=== PATIENT | female | born 1930 | race African-American/Black ===

== ENCOUNTER 2018-09-21 18:31 | Inpatient (IN) | payer OTHER ==
[~2018-09-21] VITALS: Ht 157.5 cm; Wt 78.5 kg
[2018-09-21 18:34] VITALS: BP 111/51
--- NOTE | 2018-09-21 18:35 | NUR ---
PT BIB [facility] TO ER BED 10
--- NOTE | 2018-09-21 18:50 | NUR ---
PT TO ED VIA EMS FOR NEAR SYNCOPAL EPISODE AT NURSING FACILITY TODAY. UPON ARRIVAL PT WAS ALERT TO NAME. NOT ALERT TO EVENT, BIRTHDAY. PT HAS HX OF DEMENTIA, PER SON, PT IS AT BASELINE. NO OBVIOUS DISTRESS NOTED. PT PLACED INTO BED, ON CONTINOUS CARDIAC MONITORING, PENDING MD HSU.
--- NOTE | 2018-09-21 19:12 | NUR ---
RECEIVED REPORT FROM VICKIE CAMARENA. TRANSFER OF CARE AT THIS TIME.
--- NOTE | 2018-09-21 19:15 | NUR ---
LAB AT BEDSIDE FOR BLOOD DRAWS.
[2018-09-21 19:33] LABS: BASOPHILS % (AUTO) 0.6 % (0.0-2.0); EOSINOPHILS # (AUTO) 0.3 K/uL (0-0.4); EOSINOPHILS % (AUTO) 4.7 % (0.0-4.0); HEMATOCRIT 38.4 % (36-48); HEMOGLOBIN 12.3 g/dL (12.0-16.0); LYMPHOCYTES # (AUTO) 1.5 K/uL (2.5-16.5); LYMPHOCYTES % (AUTO) 23.5 % (20.5-51.1); MEAN CORPUSCULAR HEMOGLOBIN 31 pg (27-31); MEAN CORPUSCULAR HGB CONC 32 g/dL (33-37); MONOCYTES # (AUTO) 0.5 K/uL (0.8-1.0); MONOCYTES % (AUTO) 7.5 % (1.7-9.3); NEUTROPHILS # (AUTO) 4.1 K/uL (1.8-7.7); NEUTROPHILS % (AUTO) 63.7 % (42.2-75.2); PLATELET COUNT (AUTO) 255 K/uL (140-450); RED BLOOD CELL COUNT(AUTO) 3.92 MIL/uL (4.20-5.40); RED CELL DISTRIBUTION WIDTH 14.7 % (11.6-13.7); WHITE BLOOD COUNT (AUTO) 6.4 K/uL (4.8-10.8)
[2018-09-21 19:39] LABS: CARBON DIOXIDE 26.4 mmol/L (21-32); CHLORIDE 107 mmol/L (98-107); CREATININE 1.7 mg/dL (0.6-1.3); GLUCOSE 151 mg/dL (74-106); POTASSIUM 4.4 mmol/L (3.5-5.1); SODIUM SERUM 144 mmol/L (136-145); UREA NITROGEN, BLOOD 41 mg/dL (7-18)
[2018-09-21] MEDS ORDERED: MULT-2246 PO (19:40)
[2018-09-21] MEDS ORDERED: DEXT1CAP3 PO ×2 (19:40→22:20)
[2018-09-21] MEDS ORDERED: MAGN400S60 PO ×2 (19:40→22:20)
[2018-09-21] MEDS ORDERED: ACET-2619 PO ×3 (19:40→22:20)
[2018-09-21] MEDS ORDERED: DEXT1DRO4 OP (19:40)
[2018-09-21] MEDS ORDERED: GLIP5TAB4 PO ×2 (19:40→22:20)
[2018-09-21] MEDS ORDERED: METF500T PO (19:40)
[2018-09-21] MEDS ORDERED: [UNRECOGNIZED DRUG - CODE] PO (19:40)
[2018-09-21] MEDS ORDERED: XALOS OP ×2 (19:40→22:20)
[2018-09-21] MEDS ORDERED: LANTUS SUBQ (19:40)
[2018-09-21] MEDS ORDERED: FERR325E14 PO ×2 (19:40→22:20)
[2018-09-21] MEDS ORDERED: VITD1000 PO ×2 (19:40→22:20)
[2018-09-21] MEDS ORDERED: NA P135N RC (19:40)
[2018-09-21] MEDS ORDERED: BISA-213 RC ×2 (19:40→22:20)
[2018-09-21] MEDS ORDERED: LOSA50TA66 PO ×2 (19:40→22:20)
[2018-09-21] MEDS ORDERED: CLOP75TA26 PO ×2 (19:40→22:20)
--- NOTE | 2018-09-21 19:40 | NUR ---
XRAY AT BEDSIDE.
[2018-09-21] MEDS ORDERED: OLAN5TAB1 PO (19:41)
[2018-09-21 19:45] LABS: ALBUMIN 2.8 g/dL (3.4-5.0); ASPARTATE AMINOTRANSFERASE 14 U/L (15-37); TOTAL BILIRUBIN 0.2 mg/dL (0.0-1.0)
--- NOTE | 2018-09-21 19:51 | NUR ---
DR. FUNEZ EVALUATING AT BEDSIDE.
[2018-09-21 19:53] LABS: CREATINE KINASE MB 1.2 ng/mL (0-3.6)
--- NOTE | 2018-09-21 20:30 | NUR ---
Note shea in EDM - 09/21/18 at 2117 by BIJU # 14 FR Joshi catheter with 10 ml utilizing sterile technique. Immediate return of 50 ml dark yellow urine noted. Bedside drainage bag placed below level of bladder. Urine sample collected and sent to lab. Pt tolerated procedure well. Pt visualized scratching genitals repeatedly. Urethra appears red, swollen, irritated. Dark yellow discharge noted.
--- NOTE | 2018-09-21 20:40 | NUR ---
PERINEAL CARE AND HYGIENE PROVIDED AT THIS TIME.
--- NOTE | 2018-09-21 21:30 | NUR ---
Patient appears to be resting comfortably in bed. Vital Signs within normal limits. Respirations even and unlabored. Skin pink, warm, dry. Son sitting at bedside.
[2018-09-21 21:40] LABS: APPEARANCE,URINE HAZY (CLEAR); BILIRUBIN,URINE NEGATIVE (NEGATIVE); BLOOD, URINE TRACE-I (NEGATIVE); COLOR,URINE YELLOW (YELLOW); LEUKOCYTE ESTERASE ,URINE 2+ (NEGATIVE); NITRITE, URINE POSITIVE (NEGATIVE); PH,URINE 5.5 (5.0-9.0); UGLUCOSE NEGATIVE (NEGATIVE)
[2018-09-21 21:52] LABS: RBC,URINE 0-5 /HPF (0-5)
[2018-09-21 21:53] LABS: WBC,URINE >25 (MANY) /HPF (0-5)
[2018-09-21] MEDS ORDERED: [UNRECOGNIZED DRUG - CODE] PO (22:20)
[2018-09-21] MEDS ORDERED: METF500T2 PO (22:20)
[2018-09-21] MEDS ORDERED: OLAN2.5T1 PO (22:20)
[2018-09-21] MEDS ORDERED: ALUM355S59 PO (22:20)
[2018-09-21] MEDS ORDERED: POLY15SO48 OP (22:20)
[2018-09-21] MEDS ORDERED: MULT-1868 PO (22:20)
[2018-09-21] MEDS ORDERED: ACET-9800 PO (22:20)
[2018-09-21] MEDS ORDERED: INSU100S22 SUBQ (22:20)
[2018-09-21] MEDS ORDERED: NA P133E RC (22:20)
[2018-09-21] MEDS ORDERED: cefTRIAXone 1,000 MG in LIDOCAINE MPF 1% - 5 mL VIAL 2.1 ML IM ONE (22:35)
[2018-09-21] MEDS ORDERED: NACL 0.9% 1,000 ML IV SCH (22:39)
[2018-09-21] MEDS ORDERED: HYDROcodone/APAP 7.5/325 MG 1 TAB PO PRN (22:40)
[2018-09-21] MEDS ORDERED: ONDANSETRON 4 MG/2 ML VIAL IVP PRN (22:40)
[2018-09-21] MEDS ORDERED: ACETAMINOPHEN 325 MG TAB PO PRN (22:40)
--- NOTE | 2018-09-21 22:40 | NUR ---
Patient appears to be resting comfortably in bed. Vital Signs within normal limits. Respirations even and unlabored. Skin pink, warm, dry. Son sitting at bedside.
--- NOTE | 2018-09-21 22:49 | NUR ---
PT SON CONTACT IS MYRA ESCOBAR [phone]
[2018-09-21 23:10] LABS: PROTHROMBIN TIME 9.6 secs (10.8-13.4)
[2018-09-21 23:25] VITALS: BP 101/47
--- NOTE | 2018-09-21 23:25 | NUR ---
Patient will be admitted to care of Dr. Ron. Admited to TELE. Will go to room 128A. Belongings list completed. Report to VICKIE Duff.
--- NOTE | 2018-09-21 23:25 | NUR ---
PT BROUGHT UP BY ROBERT ESCORTED BY DAVID ABDI AND ARCHIE RN. PT WHEELED TO ROOM 128 AND WAS TRANSFERRED TO BED B BY STAFF. PT IS AOX 1-2, WITH INTACT SKIN. SHE HAS HX OF DEMENTIA, SHE IS PLEASANT BUT CONFUSED. PT REORIENTED AND MRSA SWAB WELL V/S DONE AT BEDSIDE V/S FOLLOWS T 97.5 P 96 R 20 B/P 101/47. 02 ON ROOM AIR. REPORT GIVEN AT BEDSIDE FROM ARCHIE. PT ORIENTED TO PLACE, ROOM AND BED. ALL FALLS PRECAUTIONS IN PLACE AND CALL RUIZ IN REACH.
[2018-09-21 23:45] LABS: FREE T4 (FREE THYROXINE) 1.1 ng/dL (0.76-1.46); THYROID STIMULATING HORMONE 10.79 uIU/mL (0.34-3.74)
[2018-09-22] MEDS ORDERED: SODIUM PHOSPHATE 118 ML ENEM RC PRN (00:45)
[2018-09-22] MEDS ORDERED: ACETAMINOPHEN 325 MG TAB PO PRN (00:45)
[2018-09-22] MEDS ORDERED: MECLIZINE 25 MG TAB PO PRN (00:45)
[2018-09-22] MEDS ORDERED: BISACODYL 10 MG SUPP RC PRN (00:45)
[2018-09-22] MEDS ORDERED: MAGNESIUM HYDROXIDE 2400 MG/30 ML UDC PO PRN (00:45)
[2018-09-22 04:00] VITALS: BP 120/42
--- NOTE | 2018-09-22 04:00 | NUR ---
PT IN BED ALL FALLS PRECAUTIONS IN PLACE. PT PULLED OUT IV SITE, NEW ONE PLACED ON LEFT WRIST 24G INTACT AND RUNNING N/S AT 50MLS/HR ORDERED. V/S FOLLOWS T 97.4 P 68 R 18 B/P 120/42 02 97% ON ROOM AIR. PT HAS NO S/S OF PAIN OR DISTRESS NOTED.
--- NOTE | 2018-09-22 06:00 | NUR ---
PT IN BED NEW IV SITE ON LEFT WRIST INTACT AND RUNNING N/S AT 50MLS/HR. PT FINGERSTICK IS 74 GIVEN OJ NO COVERAGE NEEDED.
[2018-09-22] MEDS: BLOOD GLUCOSE MONITORING 1 DEV DEV FS SCH ×4 (07:30→20:48)
--- NOTE | 2018-09-22 07:30 | NUR ---
REPORT GIVEN TO JASWINDER RN DAYSHIFT NURSE AT BEDSIDE FOR CONTINUITY OF CARE, PT IN STABLE CONDITION.
--- NOTE | 2018-09-22 07:31 | NUR ---
PT RESTING IN BED AOX1 ALERT TO NAME BUT OTHERWISE NONE VERBAL AT THIS TIME. PT HAS A LEFT WRIST IV THAT IS ASYMPTOMATIC AND PATENT INFUSING NS AT 50ML/HR. ALL SAFETY MEASURES IN PLACE WITH CALL LIGHT WITHIN REACH. FLACC 0 AND NOT RESPONDING TO ANY QUESTIONS OF DISCOMFORT OR PAIN WITH NO FACIAL GRIMACING APPARENT AND NO OBVIOUS DISTRESS BREATHING UNLABORED.
[2018-09-22 08:00] VITALS: BP 109/52
[2018-09-22] MEDS ORDERED: NON-FORMULARY ITEM (Metformin HCl* (Glucophage Xr*) 500 MG) PO SCH (08:00)
[2018-09-22] MEDS: FERROUS SULFATE 325 MG TABEC PO SCH ×2 (08:37→20:39)
[2018-09-22] MEDS: LOSARTAN 50 MG TAB PO SCH ×2 (08:37→20:39)
[2018-09-22] MEDS: DOCUSATE SODIUM 100 MG GELCAP PO SCH ×2 (08:37→20:39)
[2018-09-22] MEDS: ALUMINUM HYD/MAG/SIMETHICONE 30 ML UDC PO SCH (08:37)
--- NOTE | 2018-09-22 08:38 | NUR ---
ADMINISTERED MEDICATIONS PT RESTING IN BED AND ABLE TO SWALLOW PILLS AND MEDICINE WITHOUT DIFFICULTY. CURRENTLY PT IS ALSO ABOUT TO RECEIVE ULTRASOUND AT BEDSIDE. NO DISTRESS AT THIS TIME AND BREATHING UNLABORED.
[2018-09-22 08:41] LABS: CHOL/HDL RATIO 1.9 (1-4.5)
--- NOTE | 2018-09-22 08:50 | NUR ---
PATIENT HAS BEEN SCREENED AND CATEGORIZED MODERATE NUTRITION RISK. PATIENT WILL BE SEEN WITHIN 3-5 DAYS OF ADMISSION. 09/24/18-09/26/[address]
[2018-09-22] MEDS ORDERED: NON-FORMULARY ITEM (Dextromethorphan HBr/Quinidine (Nuedexta 20-10 mg Capsule) 1 CAP) PO SCH (09:00)
[2018-09-22] MEDS ORDERED: NON-FORMULARY ITEM (Dextran 70/Hypromellose (Artificial Tears) 1 EACH) OP SCH (09:00)
[2018-09-22] MEDS ORDERED: glipiZIDE 5 MG TAB PO SCH (09:00)
[2018-09-22] MEDS: CLOPIDOGREL 75 MG TAB PO SCH (09:37)
[2018-09-22] MEDS: INSULIN LANTUS 100 UNITS/ML 10 ML VIAL SUBQ SCH (09:41)
--- NOTE | 2018-09-22 09:47 | NUR ---
ADMINISTERED SCHEDULED MEDICATIONS AND ASSISTED PT UP IN BED TO FINISH BREAKFAST WELL. CONTACTED GEOGRAPHIC INFORMATION SYSTEMS DIRECTOR TO ALSO ASSIST WITH PT FINISHING BREAKFAST SHE HAS A TENDENCY TO KEEP FALLING ASLEEP AND PT IS REQUESTING SHE WANTS TO EAT BREAKFAST NOW COMMUNICATING WITH ME VERBALLY.
[2018-09-22] MEDS: DEXT 5% / NACL 0.9% 500 ML IV SCH ×2 (10:42→17:13)
--- NOTE | 2018-09-22 10:43 | NUR ---
SPOKE TO POGio BOCANEGRA WINSTON AT BEDSIDE REGARDING PT PROCEDURES DONE TODAY AND HOW SHE HAS BEEN DOING THIS MORNING. PT SON HAS NO OTHER REQUESTS, PT RESTING IN BED BREATHING UNLABORED.
[2018-09-22 10:48] LABS: BASOPHILS % (AUTO) 0.6 % (0.0-2.0); EOSINOPHILS # (AUTO) 0.4 K/uL (0-0.4); EOSINOPHILS % (AUTO) 5.7 % (0.0-4.0); HEMATOCRIT 36.4 % (36-48); HEMOGLOBIN 11.7 g/dL (12.0-16.0); LYMPHOCYTES # (AUTO) 1.8 K/uL (2.5-16.5); LYMPHOCYTES % (AUTO) 29.4 % (20.5-51.1); MEAN CORPUSCULAR HEMOGLOBIN 32 pg (27-31); MEAN CORPUSCULAR HGB CONC 32 g/dL (33-37); MEAN CORPUSCULAR VOLUME 98.6 fL (80-94); MONOCYTES # (AUTO) 0.4 K/uL (0.8-1.0); MONOCYTES % (AUTO) 7.1 % (1.7-9.3); NEUTROPHILS # (AUTO) 3.6 K/uL (1.8-7.7); NEUTROPHILS % (AUTO) 57.2 % (42.2-75.2); PLATELET COUNT (AUTO) 221 K/uL (140-450); RED BLOOD CELL COUNT(AUTO) 3.69 MIL/uL (4.20-5.40); RED CELL DISTRIBUTION WIDTH 14.9 % (11.6-13.7); WHITE BLOOD COUNT (AUTO) 6.3 K/uL (4.8-10.8)
[2018-09-22 11:02] LABS: ANION GAP 10.8 (8-16); CARBON DIOXIDE 26.8 mmol/L (21-32); CHLORIDE 110 mmol/L (98-107); CREATININE 1.6 mg/dL (0.6-1.3); GLUCOSE 121 mg/dL (74-106); POTASSIUM 4.6 mmol/L (3.5-5.1); SODIUM SERUM 143 mmol/L (136-145); UREA NITROGEN, BLOOD 38 mg/dL (7-18)
[2018-09-22 11:07] LABS: MAGNESIUM 2.1 mg/dL (1.8-2.4); PHOSPHORUS 3.1 mg/dL (2.5-4.9)
[2018-09-22] MEDS: INSULIN LISPRO SLIDING SCALE 100 UNITS/ML VIAL SUBQ PRN ×2 (11:39→17:24)
[2018-09-22 12:00] VITALS: BP 139/42
[2018-09-22] MEDS: POLYVINYL ALCOHOL 1.4% OP 15 ML SOL OP SCH ×2 (12:08→16:18)
--- NOTE | 2018-09-22 12:08 | NUR ---
ADMINISTERED EYE DROPS PER ORDER. PT RESTING IN BED NO DISTRESS.
--- NOTE | 2018-09-22 13:16 | NUR ---
PT SLEEPING IN BED BREATHING UNLABORED.
--- NOTE | 2018-09-22 14:01 | NUR ---
PT SLEEPING IN BED BREATHING UNLABORED
[2018-09-22] MEDS: glipiZIDE 5 MG TAB PO SCH (15:35)
--- NOTE | 2018-09-22 15:40 | NUR ---
ADMINISTERED MEDICATION PT SITTING UP IN BED HAVING CONVERSATION WITH ME REGARDING HER SON AOX2 ABLE TO COMMUNICATE WELL BUT NOT ABLE TO RECALL SHELL FISHERMAN OR DATE. NO DISTRESS.
[2018-09-22 16:00] VITALS: BP 145/72
--- NOTE | 2018-09-22 16:18 | NUR ---
ADMINISTERED PT EYE DROPS, SHE IS SITTING UP IN BED SMILING AND STATING SHE FEELS GOOD AND IS HAPPY. NO DISTRESS OR REQUESTS AT THIS TIME.
--- NOTE | 2018-09-22 17:28 | NUR ---
PT FAMILY AT BEDSIDE REQUESTING TO TALK TO MD. SPOKE TO DR NIETO AND SHE INFORMED ME SHE WILL TALK TO THEM SOON.
--- NOTE | 2018-09-22 18:16 | NUR ---
PT SITTING UP IN BED EATING WITH ASSISTANCE OF MINT WAFER DEPOSITOR. BREATHING UNLABORED NO DISTRESS.
--- NOTE | 2018-09-22 19:15 | NUR ---
Received endorsement from AM shift RN; patient A/Ox1, able to make needs known, American speaking, on bedrest. Introduced self, updated board. No SOB or distress noted, on room air. IV site noted on left hand, 22 gauge, intact, running IVF at 60mL/hr. Skin intact. Joshi catheter in place. Bed in the lowest position. Call light within reach. Initial assessment done. Will continue to monitor.
[2018-09-22 20:00] VITALS: BP 122/40
[2018-09-22] MEDS: OLANZapine 2.5 MG TAB PO SCH (20:39)
[2018-09-22] MEDS: LATANOPROST 0.005% OP 2.5 ML BTL OP SCH (20:43)
--- NOTE | 2018-09-22 20:55 | NUR ---
Vitals taken, due meds given. Tolerated well.
--- NOTE | 2018-09-22 22:37 | NUR ---
Rounds done, no distress noted. Patient asleep, visible chest rise and fall noted.
[2018-09-23] VITALS: BP 100/52
--- NOTE | 2018-09-23 00:20 | NUR ---
Vitals taken, no distress noted.
--- NOTE | 2018-09-23 01:38 | NUR ---
Checks made; patient asleep, eyes closed, visible chest rise and fall noted.
[2018-09-23] MEDS: DEXT 5% / NACL 0.9% 500 ML IV SCH (02:37)
--- NOTE | 2018-09-23 02:59 | NUR ---
Frequent checks made; no distress noted. Patient asleep, visible chest rise and fall noted.
[2018-09-23 04:00] VITALS: BP 118/45
--- NOTE | 2018-09-23 04:15 | NUR ---
IV removed by patient; re-inserted on left wrist, 22 gauge, intact and flushed.
[2018-09-23] MEDS: DEXT 5% /NACL 0.9% 1,000 ML IV SCH ×2 (04:17→18:59)
--- NOTE | 2018-09-23 04:39 | NUR ---
Vitals taken, no distress noted. Patient asleep, visible chest rise and fall noted.
[2018-09-23] MEDS: LEVOTHYROXINE 0.025 MG TAB PO SCH (06:09)
[2018-09-23] MEDS: BLOOD GLUCOSE MONITORING 1 DEV DEV FS SCH ×4 (06:12→21:00)
[2018-09-23] MEDS: DEXTROSE 50% 50 ML SYR IVP PRN (06:13)
[2018-09-23] MEDS: glipiZIDE 5 MG TAB PO SCH ×2 (06:30→16:44)
[2018-09-23 06:40] LABS: ANION GAP 11.7 (8-16); CARBON DIOXIDE 26.7 mmol/L (21-32); CHLORIDE 109 mmol/L (98-107); CREATININE 1.6 mg/dL (0.6-1.3); GLUCOSE 63 mg/dL (74-106); POTASSIUM 4.4 mmol/L (3.5-5.1); SODIUM SERUM 143 mmol/L (136-145); UREA NITROGEN, BLOOD 34 mg/dL (7-18)
[2018-09-23 06:48] LABS: PHOSPHORUS 3.2 mg/dL (2.5-4.9)
[2018-09-23 06:51] LABS: BASOPHILS % (AUTO) 0.8 % (0.0-2.0); EOSINOPHILS # (AUTO) 0.4 K/uL (0-0.4); EOSINOPHILS % (AUTO) 6.2 % (0.0-4.0); HEMATOCRIT 34.6 % (36-48); HEMOGLOBIN 11.1 g/dL (12.0-16.0); LYMPHOCYTES # (AUTO) 1.9 K/uL (2.5-16.5); MEAN CORPUSCULAR HEMOGLOBIN 32 pg (27-31); MEAN CORPUSCULAR HGB CONC 32 g/dL (33-37); MEAN CORPUSCULAR VOLUME 98.6 fL (80-94); MONOCYTES # (AUTO) 0.4 K/uL (0.8-1.0); MONOCYTES % (AUTO) 7.2 % (1.7-9.3); NEUTROPHILS # (AUTO) 3.2 K/uL (1.8-7.7); NEUTROPHILS % (AUTO) 53.8 % (42.2-75.2); PLATELET COUNT (AUTO) 238 K/uL (140-450); RED BLOOD CELL COUNT(AUTO) 3.51 MIL/uL (4.20-5.40); RED CELL DISTRIBUTION WIDTH 14.7 % (11.6-13.7)
--- NOTE | 2018-09-23 07:10 | NUR ---
Endorsed patient to AM shift RN for continuity of care; patient in stable condition.
--- NOTE | 2018-09-23 07:15 | NUR ---
RECEIVED REPORT ON PT FROM JOURNEYMAN CARPENTER NURSE. PT STABLE UPON SHIFT CHANGE. RESPIRATIONS EVEN AND UNLABORED. PT HAS A F/C IN PLACE. WILL CONTINUE TO MONITOR.
[2018-09-23 08:00] VITALS: BP 141/41
[2018-09-23 08:05] VITALS: BP 141/41
[2018-09-23] MEDS: FERROUS SULFATE 325 MG TABEC PO SCH ×2 (09:38→22:14)
[2018-09-23] MEDS: CLOPIDOGREL 75 MG TAB PO SCH (09:38)
[2018-09-23] MEDS: DOCUSATE SODIUM 100 MG GELCAP PO SCH ×2 (09:38→22:13)
[2018-09-23] MEDS: LOSARTAN 50 MG TAB PO SCH ×2 (09:39→22:14)
[2018-09-23] MEDS: POLYVINYL ALCOHOL 1.4% OP 15 ML SOL OP SCH ×4 (09:40→22:13)
[2018-09-23] MEDS: ALUMINUM HYD/MAG/SIMETHICONE 30 ML UDC PO SCH (09:40)
[2018-09-23] MEDS: INSULIN LANTUS 100 UNITS/ML 10 ML VIAL SUBQ SCH (09:47)
--- NOTE | 2018-09-23 10:22 | NUR ---
FNS CONSULT HAS BEEN RECEIVED FOR MALNUTRITION. PATIENT HAS BEEN RE-SCREENED HIGH RISK AND WILL BE SEEN WITHIN 1-2 DAYS OF RECEIVING THE FNS CONSULT. 09/23/[address]
[2018-09-23 12:00] VITALS: BP 119/44
[2018-09-23] MEDS: INSULIN LISPRO SLIDING SCALE 100 UNITS/ML VIAL SUBQ PRN ×2 (12:44→16:43)
--- NOTE | 2018-09-23 13:56 | NUR ---
09/23/18 RD INITIAL ASSESSMENT COMPLETED PLEASE REFER TO NUTRITION ASSESSMENT UNDER CARE ACTIVITY FOR ESTIMATED NUTRITIONAL NEEDS. 1. CONTINUE CCHO 60 G, MECHANICAL SOFT TEXTURE DIET TOLERATED 2. RD TO FOLLOW-UP 3-5 DAYS, MODERATE RISK COOKIE RIOS, RD
[2018-09-23 16:10] VITALS: BP 109/78
--- NOTE | 2018-09-23 16:15 | NUR ---
PT IS AWAKE AND VITAL SIGNS TAKEN AND IS STABLE, BLOOD GLUCOSE CHECK DONE AND IS 166. WILL MONITOR PT.
--- NOTE | 2018-09-23 16:45 | NUR ---
PT IS AWAKE AND SEATED ON THE BED, ORAL AND SUBQ MEDICATIONS WERE GIVEN TO PT. WILL MONITOR
--- NOTE | 2018-09-23 19:15 | NUR ---
ENDORSED PT TO MATH AND PHYSICS INSTRUCTOR NURSE FOR CONTINUITY OF CARE.
--- NOTE | 2018-09-23 19:16 | NUR ---
RECEIVED REPORT FROM AM NURSE. PT SLEEPING BUT AROUSABLE TO VOICE. PT ALERT TO NAME ONLY. PT BREATHING UNLABORED ON ROOM AIR. REMY CATH IN PLACE. LEFT WRIST 22G INTACT AND INFUSING WELL, CURRENTLY WRAPPED AND OUT OF PT EYE SIGHT TO DETER PULLING OUT. FALL PRECAUTIONS IN PLACE. CALL LIGHT WITHIN REACH. WILL CONTINUE TO MONITOR.
[2018-09-23] MEDS: LATANOPROST 0.005% OP 2.5 ML BTL OP SCH (21:00)
[2018-09-23] MEDS: OLANZapine 2.5 MG TAB PO SCH (21:00)
--- NOTE | 2018-09-23 22:21 | NUR ---
BLOOD GLUCOSE 110 AT THIS TIME. NO COVERAGE NEEDED.
[2018-09-24] VITALS: BP 127/64
--- NOTE | 2018-09-24 | NUR ---
VITALS TAKEN. PT SLEEPING BUT AWAKENS EASILY. NO C/O DISCOMFORT, FLACC 0. WILL CONTINUE TO MONITOR.
--- NOTE | 2018-09-24 02:30 | NUR ---
ROUNDED ON PT. PT SLEEPING, BREATHING EQUAL AND UNLABORED ON ROOM AIR. WILL CONTINUE TO MONITOR.
--- NOTE | 2018-09-24 04:37 | NUR ---
ROUNDED ON PT. PT SLEEPING. COVERED PT WITH BLANKET FOR COMFORT.
[2018-09-24 06:16] LABS: ANION GAP 11.9 (8-16); CARBON DIOXIDE 23.6 mmol/L (21-32); CHLORIDE 110 mmol/L (98-107); CREATININE 1.3 mg/dL (0.6-1.3); GLUCOSE 132 mg/dL (74-106); POTASSIUM 4.5 mmol/L (3.5-5.1); SODIUM SERUM 141 mmol/L (136-145); UREA NITROGEN, BLOOD 24 mg/dL (7-18)
[2018-09-24] MEDS: LEVOTHYROXINE 0.025 MG TAB PO SCH (06:33)
[2018-09-24] MEDS: glipiZIDE 5 MG TAB PO SCH ×2 (06:33→18:06)
[2018-09-24] MEDS: BLOOD GLUCOSE MONITORING 1 DEV DEV FS SCH ×4 (06:45→21:25)
--- NOTE | 2018-09-24 06:46 | NUR ---
ADMINISTERED MEDICATIONS, ABLE TO TAKE WITH APPLESAUCE
--- NOTE | 2018-09-24 07:20 | NUR ---
ENDORSED TO AM NURSE. PT IN STABLE CONDITION.
[2018-09-24 08:00] VITALS: BP 167/62
--- NOTE | 2018-09-24 08:00 | NUR ---
RECEIVED BED SIDE REPORT FROM TREE PLANTER RN JUNE. PT IN STABLE CONDITION, ON RA IN NO RESPIRATORY DISTRESS, AND APPEARS IN NO PAIN. SKIN INTACT. BILATERAL LOWER EXTREMITIES APPEAR +2 PITTING EDEMA. NOTIFIED . GAVE ORDERS TO RESIDENTS TO DECREASE FLUIDS, APPLY KELLI HOSE, AND ELEVATE FEET. WILL CONTINUE TO MONITOR
[2018-09-24] MEDS: ALUMINUM HYD/MAG/SIMETHICONE 30 ML UDC PO SCH (08:16)
[2018-09-24] MEDS: FERROUS SULFATE 325 MG TABEC PO SCH ×2 (08:16→21:17)
[2018-09-24] MEDS: LOSARTAN 50 MG TAB PO SCH ×2 (08:16→21:00)
[2018-09-24] MEDS: CLOPIDOGREL 75 MG TAB PO SCH (08:16)
[2018-09-24] MEDS: INSULIN LANTUS 100 UNITS/ML 10 ML VIAL SUBQ SCH (08:17)
[2018-09-24] MEDS: DOCUSATE SODIUM 100 MG GELCAP PO SCH ×2 (08:17→21:17)
[2018-09-24 08:20] LABS: BASOPHILS % (AUTO) 0.7 % (0.0-2.0); EOSINOPHILS # (AUTO) 0.4 K/uL (0-0.4); EOSINOPHILS % (AUTO) 5.4 % (0.0-4.0); HEMOGLOBIN 11.4 g/dL (12.0-16.0); LYMPHOCYTES # (AUTO) 2.1 K/uL (2.5-16.5); LYMPHOCYTES % (AUTO) 30.1 % (20.5-51.1); MEAN CORPUSCULAR HEMOGLOBIN 32 pg (27-31); MEAN CORPUSCULAR HGB CONC 33 g/dL (33-37); MONOCYTES # (AUTO) 0.5 K/uL (0.8-1.0); MONOCYTES % (AUTO) 7.7 % (1.7-9.3); NEUTROPHILS # (AUTO) 3.9 K/uL (1.8-7.7); NEUTROPHILS % (AUTO) 56.1 % (42.2-75.2); PLATELET COUNT (AUTO) 229 K/uL (140-450); RED BLOOD CELL COUNT(AUTO) 3.57 MIL/uL (4.20-5.40); RED CELL DISTRIBUTION WIDTH 14.8 % (11.6-13.7); WHITE BLOOD COUNT (AUTO) 6.9 K/uL (4.8-10.8)
--- NOTE | 2018-09-24 09:40 | NUR ---
REPOSITIONED AND CHANGED PT. SKIN INTACT, NO REDNESS NOTED.
[2018-09-24] MEDS: INSULIN LISPRO SLIDING SCALE 100 UNITS/ML VIAL SUBQ PRN (12:09)
[2018-09-24] MEDS: POLYVINYL ALCOHOL 1.4% OP 15 ML SOL OP SCH ×2 (12:10→17:00)
--- NOTE | 2018-09-24 16:11 | NUR ---
REPOSITIONED PT AND CHANGED PT. SKIN INTACT. BLOOD SUGAR 85. GAVE ORANGE JUICE, WILL RE-CHECK
[2018-09-24] MEDS: DEXT 5% /NACL 0.9% 1,000 ML IV SCH (16:26)
[2018-09-24 16:27] VITALS: BP 131/57
--- NOTE | 2018-09-24 19:15 | NUR ---
GAVE BED SIDE REPORT TO RN. PT IN STABLE CONDITION
--- NOTE | 2018-09-24 19:16 | NUR ---
RECEIVED BEDSIDE REPORT FROM DAY SHIFT NURSE. NO SOB NOTED, BREATHING EVEN AND UNLABORED. IV SITE ON L WRIST, 22G, PATENT, INTACT, ASYMPTOMATIC. RUNNING D5NS @ 30MLS/HR. SKIN INTACT, WARM AND DRY TO TOUCH. BED ALARM ON, FALL PRECAUTION IN PLACE. PT HAS REMY CATHETER, URINE CLEAN AND YELLOW. BED IN LOW POSITION, CALL LIGHT WITHIN REACH.
--- NOTE | 2018-09-24 19:46 | NUR ---
BS CHECKED, 66, GIVEN 2PACKS OF ORANGE JUICE. WILL CHECK BS AGAIN.
[2018-09-24] MEDS: OLANZapine 2.5 MG TAB PO SCH (21:17)
--- NOTE | 2018-09-24 21:18 | NUR ---
GIVEN ROCEPHIN, XALATAN, COLACE, FERROUS SULFATE, AND ZYPREXA MD ORDERED. HELD COZAAR D/T LOW DIASTOLIC BLOOD PRESSURE, 121/36. BS CHECKED AGAIN, 165, HELD INSULIN D/T EASILY DECREASED BS. BED IN LOW POSITION. WILL CONTINUE TO MONITOR.
[2018-09-24] MEDS: LATANOPROST 0.005% OP 2.5 ML BTL OP SCH (21:26)
--- NOTE | 2018-09-24 23:21 | NUR ---
ENDORSED PT TO AKUA FOR CONTINUOUS CARE. PT IN STABLE CONDITION.
--- NOTE | 2018-09-24 23:23 | NUR ---
RECD. PATIENT SLEEPING COMFORTABLY IN BED, RESPIRATION EVEN AND UNLABORED. IV OF D5 NS AT 30 ML/HR INFUSING, LEFT FOREARM G22. SAFETY MEASURES ENFORCED. BED ON LOW POSITION, BED ON ALARM. F/C PATENT DRAINING CLEAR YELLOW URINE. NO APPEARANCE OF PAIN NOTED 0/10.
[2018-09-25] VITALS: BP 132/50
--- NOTE | 2018-09-25 00:24 | NUR ---
RECEIVED PT BACK FROM [facility] FOR CONTINUOUS CARE. PT IN STABLE CONDITION.
--- NOTE | 2018-09-25 02:04 | NUR ---
PT SLEEPING IN BED COMFORTABLY. NO ACUTE DISTRESS NOTED. WILL CONTINUE TO MONITOR.
--- NOTE | 2018-09-25 04:35 | NUR ---
PT SLEEPING IN BED. RESPIRATION EVEN AND UNLABORED. WILL CONTINUE TO MONITOR.
--- NOTE | 2018-09-25 05:37 | NUR ---
BS CHECKED, 72, TRIED TO GIVE ORANGE JUICE BUT PT REFUSED STRONGLY. WILL CONTINUE TO MONITOR.
--- NOTE | 2018-09-25 05:46 | NUR ---
BS CHECKED AGAIN, 64, OFFER ORANGE JUICE BUT PT REFUSED VERY STRONGLY. WILL CHECK LATER AND WILL ADMINISTER D50 IF BS LOWER THAN 60 MD ORDERED.
[2018-09-25] MEDS: LEVOTHYROXINE 0.025 MG TAB PO SCH (06:30)
[2018-09-25 06:33] LABS: ANION GAP 13.6 (8-16); CARBON DIOXIDE 24.1 mmol/L (21-32); CHLORIDE 110 mmol/L (98-107); CREATININE 1.3 mg/dL (0.6-1.3); GLUCOSE 65 mg/dL (74-106); POTASSIUM 4.7 mmol/L (3.5-5.1); SODIUM SERUM 143 mmol/L (136-145); UREA NITROGEN, BLOOD 22 mg/dL (7-18)
[2018-09-25] MEDS: glipiZIDE 5 MG TAB PO SCH (06:44)
[2018-09-25] MEDS: BLOOD GLUCOSE MONITORING 1 DEV DEV FS SCH ×2 (06:53→12:16)
[2018-09-25] MEDS: DEXTROSE 50% 50 ML SYR IVP PRN (06:57)
--- NOTE | 2018-09-25 06:59 | NUR ---
BS CHECKED AGAIN, 64, PT STILL REFUSED ORANGE JUICE. NOTIFIED RESIDENT AND ORDERED D50. GIVEN D50, PT TOLERATED WELL. WILL RECHECK BS AGAIN. Addendum: 09/25/18 at 0702 by Tyrone Blunt RN HELD GLIPIZIDE D/T DECREASED GLUCOSE LEVEL, 64. PT REFUSED SYNTHROID. EXPLAIN BENEFIT AND RISK 3TIMES, PT STILL REFUSED. NOTIFIED TO RESIDENT
[2018-09-25 07:24] LABS: BASOPHILS % (AUTO) 0.5 % (0.0-2.0); EOSINOPHILS # (AUTO) 0.3 K/uL (0-0.4); HEMATOCRIT 33.1 % (36-48); HEMOGLOBIN 10.8 g/dL (12.0-16.0); LYMPHOCYTES # (AUTO) 2.2 K/uL (2.5-16.5); MEAN CORPUSCULAR HEMOGLOBIN 32 pg (27-31); MEAN CORPUSCULAR HGB CONC 33 g/dL (33-37); MEAN CORPUSCULAR VOLUME 97.3 fL (80-94); MONOCYTES # (AUTO) 0.7 K/uL (0.8-1.0); NEUTROPHILS # (AUTO) 3.7 K/uL (1.8-7.7); NEUTROPHILS % (AUTO) 53.5 % (42.2-75.2); PLATELET COUNT (AUTO) 219 K/uL (140-450); RED CELL DISTRIBUTION WIDTH 14.3 % (11.6-13.7); WHITE BLOOD COUNT (AUTO) 6.9 K/uL (4.8-10.8)
--- NOTE | 2018-09-25 07:30 | NUR ---
ENDORSED PT TO CHARGE NURSE. PT IN STABLE CONDITION. Addendum: 09/25/18 at 743 by Tyrone Blunt RN ENDORSED PT TO DAY SHIFT NURSEPATRICIA. PT IN STABLE CONDITION. Addendum: 09/25/18 at 744 by Tyrone Blunt RN BS CHECKED, 156 NOTED, INSULIN HELD.
--- NOTE | 2018-09-25 07:50 | NUR ---
RECEIVED BED SIDE REPORT. PT SLEEPING COMFORTABLY.D5 NS RUNNING AT 30CC/HR. BED ALARM ON, CALL LIGHT WITHIN REACH. LAST BLOOD SUGAR 155. WILL CONTINUE TO MONITOR
[2018-09-25] MEDS ORDERED: ROC250I IV (08:53)
[2018-09-25] MEDS: POLYVINYL ALCOHOL 1.4% OP 15 ML SOL OP SCH ×2 (09:00→13:00)
[2018-09-25] MEDS: CLOPIDOGREL 75 MG TAB PO SCH (09:00)
[2018-09-25] MEDS: ALUMINUM HYD/MAG/SIMETHICONE 30 ML UDC PO SCH (09:00)
[2018-09-25] MEDS: DOCUSATE SODIUM 100 MG GELCAP PO SCH (09:00)
[2018-09-25] MEDS: LOSARTAN 50 MG TAB PO SCH (09:00)
[2018-09-25] MEDS: FERROUS SULFATE 325 MG TABEC PO SCH (09:00)
[2018-09-25] MEDS: INSULIN LANTUS 100 UNITS/ML 10 ML VIAL SUBQ SCH (09:15)
--- NOTE | 2018-09-25 09:20 | NUR ---
PT IS ASLEEP. TRIED WAKING PT UP, PT AROUSABLE BUT GOES BACK TO SLEEP. BLOOD SUGAR 149. BREAKFAST AT BEDSIDE. TRIED TO GIVE A LITTLE BIT OF APPLESAUCE, PT TOOK IN A LITTLE BIT. WILL CONTINUE TO MONITOR
--- NOTE | 2018-09-25 09:56 | NUR ---
DISCHARGE ORDER IN. TALKED TO FOR SS REQUEST. WILL WAIT FOR ORDER
[2018-09-25 10:11] VITALS: BP 157/40
--- NOTE | 2018-09-25 10:50 | NUR ---
Director Of Services Note: I faxed patient's clinical information to [facility]. Edwin from [facility] is aware plan is to transfer patient back to [facility] today. Per [employer] Nadine Vazquez from [facility] provided her with room 40C, accepting physician is David Amador.
--- NOTE | 2018-09-25 13:53 | NUR ---
CALLED [facility] SPOKE WITH BOOGIE AND RECEIVED THE AUTH # FOR TRANSPORT [id number] ARRANGED TRANSPORT WITH [employer]MI[employer] AND MAIL TECHNICIAN TIME IS 1400
--- NOTE | 2018-09-25 14:38 | NUR ---
GAVE REPORT TO PAOLO FROM [facility]. WAITING FOR [facility] SECOND RIDE FARE COLLECTOR. CALLED JUANY ESCOBAR TO NOTIFY HER THAT HER MOTHER IN LAW IS BEING TRANSFERRED BACK TO [facility]. SHE VERBALIZED UNDERSTANDING
--- NOTE | 2018-09-25 15:07 | NUR ---
[facility] IS HERE TO PROTECTIVE SERVICES SOCIAL WORKER PT. PT'S IV LEFT WRIST INFILTRATED, LEFT HAND LOOKS SWOLLEN. PAIN WHEN FLUSHING. TOOK IV OUT, PRESSURE APPLIED, NO BLEEDING NOTED. [place] PAOL[place] [facility]IFY [place] THAT [place] HAS [place]FIL[place].
--- NOTE | 2018-09-25 15:24 | NUR ---
JUANY ESCOBAR, PT'S MOTHER IN LAW IS HERE TO SEE PT BEFORE PT LEFT. [facility] STILL AT [facility]ESIDE, THEY STATED THEY ARE WAITING FOR ANOTHER PERSON. PT CONFUSED PER BASELINE D/T HX DEMENTIA. CALLED KYLEE ESCOBAR, PT'S SON, TO SEE IF IT WAS OKAY FOR HIS , JUANY ESCOBAR, TO SIGN DC PAPERWORK. KYLEE CONSENTED. EXPLAINED DC INSTRUCTIONS AND CONTINUE IV ABX ROCEPHIN 1000MG DAILY FOR 2 DAYS. EDUCATED HER THE IMPORTANCE OF CONTINUING HOME MEDS AND TO FOLLOW [place] [facility] [place] JUANY VERBALIZED UNDERSTANDING. PT STABLE, VS STABLE, ON RA IN NO RESP DISTRESS. WILL CONTINUE TO MONITOR
--- NOTE | 2018-09-25 15:37 | NUR ---
NOTIFIED THE RESIDENTS ABOUT PT STILL HAVING A REMY. CALLED PAOLO JOHNSTON AT [facility] [place] TO LET HER KNOW PT HAS A REMY. SHE TOLD ME THAT SHE WILL LET THE DOCTORS KNOW AT [facility] [place] [place] TO PUT IN ORDER TO REMOVE WHEN PT ARRIVES AT [facility].
== END 2018-09-25 15:25 | DRG 73 ==
LOC: MED 18:31 → MMU 22:39
PROVIDERS: ADMIT General Practice; ATTEND General Practice
DX: G90.9 Disorder of the autonomic nervous system, unspecified (principal); N17.0 Acute kidney failure with tubular necrosis; G93.41 Metabolic encephalopathy; E43 Unspecified severe protein-calorie malnutrition; N39.0 Urinary tract infection, site not specified; I69.954 Hemiplegia and hemiparesis following unspecified cerebrovascular disease affecting left non-dominant side; I82.509 Chronic embolism and thrombosis of unspecified deep veins of unspecified lower extremity; I10 Essential (primary) hypertension; G30.9 Alzheimer's disease, unspecified; F02.80 Dementia in other diseases classified elsewhere, unspecified severity, without behavioral disturbance, psychotic disturbance, mood disturbance, and anxiety; I70.90 Unspecified atherosclerosis; H40.9 Unspecified glaucoma; E11.21 Type 2 diabetes mellitus with diabetic nephropathy; K21.9 Gastro-esophageal reflux disease without esophagitis; M19.90 Unspecified osteoarthritis, unspecified site; H04.129 Dry eye syndrome of unspecified lacrimal gland; Z68.30 Body mass index [BMI] 30.0-30.9, adult; Z99.3 Dependence on wheelchair; Z88.8 Allergy status to other drugs, medicaments and biological substances; R13.10 Dysphagia, unspecified
CPT/HCPCS: 36415; 51702; 70450; 71045; 80048; 80053; 81001; 82150; 82550; 82553; 82948; 83036; 83605; 83690; 83735; 83880; 84100; 84439; 84443; 84484; 85025; 85610; 85730; 87040; 87081; 87086; 87186; 93005; 93880; 93970; 96372; 97110; 97161-GP; 97530; 99285; J0696; J1644; J1815; J2001; J7030; J7042; J7060; Q0092

== ENCOUNTER 2019-05-03 12:53 | Inpatient (IN) | payer OTHER ==
[~2019-05-03] VITALS: Ht 162.6 cm; Wt 73.9 kg
[~2019-05-03 12:53] MED LIST: ACET-2619 PO; ALUM355S59 PO; BISA-213 RC; CLOP75TA26 PO; DEXT1CAP3 PO; DEXT1DRO4 OP; FERR325E14 PO; GLIP5TAB4 PO; INSU100S22 SUBQ; LOSA50TA66 PO; MAGN400S60 PO; METF500T2 PO; MULT-1868 PO; NA P133E RC; OLAN2.5T1 PO; POLY15SO48 OP; ROC250I IV; VITD1000 PO; XALOS OP; [UNRECOGNIZED DRUG - CODE] PO
[2019-05-03 13:07] VITALS: BP 109/40
--- NOTE | 2019-05-03 13:08 | NUR ---
PATIENT BIBA TO BED 1 AT THIS TIME.
--- NOTE | 2019-05-03 13:54 | NUR ---
TAKEN TO CT VIA ROBERT
[2019-05-03 13:59] LABS: BASOPHILS # (AUTO) 0.1 K/uL (0.00-0.22); BASOPHILS % (AUTO) 1.1 % (0.0-2.0); EOSINOPHILS # (AUTO) 0.3 K/uL (0-0.4); EOSINOPHILS % (AUTO) 3.6 % (0.0-4.0); HEMATOCRIT 31.6 % (36-48); HEMOGLOBIN 10.2 g/dL (12.0-16.0); LYMPHOCYTES % (AUTO) 14.1 % (20.5-51.1); MEAN CORPUSCULAR HEMOGLOBIN 32 pg (27-31); MEAN CORPUSCULAR HGB CONC 32 g/dL (33-37); MEAN CORPUSCULAR VOLUME 99.1 fL (80-94); MONOCYTES # (AUTO) 0.6 K/uL (0.8-1.0); MONOCYTES % (AUTO) 7.9 % (1.7-9.3); NEUTROPHILS # (AUTO) 5.2 K/uL (1.8-7.7); NEUTROPHILS % (AUTO) 73.3 % (42.2-75.2); PLATELET COUNT (AUTO) 187 K/uL (140-450); RED BLOOD CELL COUNT(AUTO) 3.18 MIL/uL (4.20-5.40); RED CELL DISTRIBUTION WIDTH 15.6 % (11.6-13.7); WHITE BLOOD COUNT (AUTO) 7.1 K/uL (4.8-10.8)
--- NOTE | 2019-05-03 14:10 | NUR ---
PT BACK IN ROOM FROM CT VIA ROBERT
--- NOTE | 2019-05-03 14:10 | NUR ---
PT RESPONSIVE TO VERBAL STIMULI. PUPILS PERRLA. 2MM, BRISK.
[2019-05-03 14:12] LABS: APPEARANCE,URINE HAZY (CLEAR); BILIRUBIN,URINE NEGATIVE (NEGATIVE); BLOOD, URINE NEGATIVE (NEGATIVE); COLOR,URINE YELLOW (YELLOW); LEUKOCYTE ESTERASE ,URINE NEGATIVE (NEGATIVE); NITRITE, URINE NEGATIVE (NEGATIVE); UGLUCOSE 3+ (NEGATIVE)
[2019-05-03 14:14] LABS: ANION GAP 14.6 (8-16); CARBON DIOXIDE 26.3 mmol/L (21-32); CHLORIDE 117 mmol/L (98-107); CREATININE 2.5 mg/dL (0.6-1.3); GLUCOSE 382 mg/dL (74-106); POTASSIUM 4.9 mmol/L (3.5-5.1); SODIUM SERUM 153 mmol/L (136-145); UREA NITROGEN, BLOOD 53 mg/dL (7-18)
[2019-05-03 14:20] LABS: ALBUMIN 2.2 g/dL (3.4-5.0); ASPARTATE AMINOTRANSFERASE 12 U/L (15-37); TOTAL BILIRUBIN 0.2 mg/dL (0.0-1.0)
[2019-05-03 14:21] LABS: ACETAMINOPHEN < 0.5 ug/ml (10-30); SALICYLATE < 2.8 mg/dL (2.8-20.0)
[2019-05-03 15:16] LABS: BARBITURATE, URINE NEG. ng/ml (NEG <=200); BENZODIAZEPINE, URINE NEG. ng/mL (NEG <=200); CANNABINOID, URINE NEG. ng/mL (NEG <=50); COCAINE, URINE NEG. ng/mL (NEG <=300); OPIATE, URINE NEG. ng/mL (NEG <=2000); PHENCYCLIDINE SCREEN,URINE NEG. ng/mL (NEG <=25)
[2019-05-03] MEDS ORDERED: ONDANSETRON 4 MG/2 ML VIAL IM/IVP PRN (15:35)
[2019-05-03] MEDS ORDERED: HYDROcodone/APAP 7.5/325 MG 1 TAB PO PRN (15:35)
[2019-05-03] MEDS ORDERED: ACETAMINOPHEN 325 MG TAB PO PRN (15:35)
[2019-05-03] MEDS ORDERED: DOCUSATE SODIUM 100 MG GELCAP PO PRN (15:35)
[2019-05-03 16:14] LABS: PROTHROMBIN TIME 10.3 secs (10.8-13.4)
[2019-05-03 16:16] LABS: CHOL/HDL RATIO 2.3 (1-4.5); FREE T4 (FREE THYROXINE) 0.93 ng/dL (0.76-1.46); MAGNESIUM 2.1 mg/dL (1.8-2.4); PHOSPHORUS 3.3 mg/dL (2.5-4.9); THYROID STIMULATING HORMONE 2.45 uIU/mL (0.34-3.74)
[2019-05-03 16:30] VITALS: BP 104/49
[2019-05-03] MEDS: BLOOD GLUCOSE MONITORING 1 DEV DEV FS SCH ×2 (16:30→21:05)
--- NOTE | 2019-05-03 16:30 | NUR ---
RECEIVED REPORT FROM EMERGENCY ROOM NURSE FOR CONTINUITY OF CARE. PT IN STABLE CONDITION. RESPIRATIONS EVEN AND UNLABORED. IV IN TACT AND PATENT. SAFETY MEASURES IN PLACE. BED IN LOW POSITION. BED ALARM ON. CALL LIGHT AT BEDSIDE. WILL CONTINUE TO MONITOR.
--- NOTE | 2019-05-03 16:30 | NUR ---
Patient will be admitted to care of [facility]. Admited to MS. Will go to room 124B. Belongings list completed. Report to GIRISH JOHNSTON.
[2019-05-03] MEDS ORDERED: POLYVINYL ALCOHOL 1.4% OP 15 ML SOL OP SCH (17:00)
[2019-05-03] MEDS: NACL 0.9% 1,000 ML IV SCH (18:23)
--- NOTE | 2019-05-03 18:45 | NUR ---
FAMILY AT BEDSIDE TALKING WITH DR. MUNOZ AT THIS TIME. PT IN STABLE CONDITION.
--- NOTE | 2019-05-03 19:30 | NUR ---
RECEIVED BEDSIDE SHIFT REPORT FROM DAY SHIFT NURSE AND TOOK OVER CARE OF PT. PT A&OX1 TO NAME. PT FAVORING TO HER RIGHT SIDE. PT HAS 20G LEFT AC RUNNING NS 60 ML. REMY CATHETER IS NOTED W/ CLEAR YELLOW URINE. SKIN IS INTACT. PT IS BED BOUND. PT IS ON O2 2 LPM VIA NC. BED IS IN LOWEST SETTING, LOCKED. CALL LIGHT IS WITHIN REACH. WILL CONTINUE TO MONITOR THROUGHOUT SHIFT.
--- NOTE | 2019-05-03 19:45 | NUR ---
PT PARENTS CAME TO PT AND HIS ROOM; ENCOURAGED TO ASK QUESTIONS THROUGHOUT.
[2019-05-03] MEDS ORDERED: glipiZIDE 5 MG TAB PO SCH (21:00)
[2019-05-03] MEDS ORDERED: CRUSHER, PILL MC ONE (21:22)
[2019-05-03] MEDS: OLANZapine 2.5 MG TAB PO SCH (21:27)
[2019-05-03] MEDS: FERROUS SULFATE 325 MG TABEC PO SCH (21:28)
[2019-05-03] MEDS: LOSARTAN 50 MG TAB PO SCH (21:28)
[2019-05-03] MEDS: INSULIN LANTUS 100 UNITS/ML 10 ML VIAL SUBQ SCH (21:50)
[2019-05-03] MEDS: INSULIN LISPRO SLIDING SCALE 100 UNITS/ML VIAL SUBQ PRN (21:52)
--- NOTE | 2019-05-03 22:00 | NUR ---
CHECKED ON PT. PT ASLEEP. BED AT LOWEST SETTING AND LOCKED. CALL LIGHT WITHIN REACH. WILL CONTINUE TO MONITOR
[2019-05-04] VITALS: BP 122/99
--- NOTE | 2019-05-04 00:26 | NUR ---
PT TEMPERATURE 100.4. COOLING MEASURES INITIATED.
--- NOTE | 2019-05-04 02:00 | NUR ---
CHECKED ON PT. PT ASLEEP. BED IN LOWEST SETTING, LOCKED. CALL LIGHT WITHIN REACH. WILL CONTINUE TO MONITOR.
--- NOTE | 2019-05-04 05:30 | NUR ---
BG 35. WILL ADMINISTER D50
[2019-05-04] MEDS: DEXTROSE 50% 50 ML SYR IVP PRN (05:32)
--- NOTE | 2019-05-04 06:09 | NUR ---
RECHECKED BG 140 AFTER D50
--- NOTE | 2019-05-04 06:55 | NUR ---
RADIOLOGY W/ PT TAKING XRAY
--- NOTE | 2019-05-04 07:12 | NUR ---
PT SLEEPING, EASILY AROUSABLE, PT STILL TAKING OFF HER NASAL CANNULA, NO SIGNS OF DISTRESS, REPORT GIVEN TO VICKIE STOUT FOR CONTINUITY OF CARE.
--- NOTE | 2019-05-04 07:13 | NUR ---
RECEIVED BEDSIDE REPORT FROM MANUFACTURING OPERATOR NURSE FLAVIA. PATIENT IN STABLE CONDITION ASLEEP BUT EASILY AROUSABLE. SKIN WARM AND DRY TO TOUCH. RESPIRATIONS EVEN AND UNLABORED ON 4L O2 VIA NASAL CANNULA. IV INTACT AND PATENT. REMY CATHETER IN PLACE. SAFETY MEASURES IN PLACE. BED IN LOW POSITION. CALL LIGHT WITHIN REACH AT BEDSIDE. WILL CONTINUE TO MONITOR.
[2019-05-04 07:14] LABS: BASOPHILS # (AUTO) 0.1 K/uL (0.00-0.22); BASOPHILS % (AUTO) 1.6 % (0.0-2.0); EOSINOPHILS # (AUTO) 0.4 K/uL (0-0.4); EOSINOPHILS % (AUTO) 5.6 % (0.0-4.0); HEMATOCRIT 31.1 % (36-48); HEMOGLOBIN 10.3 g/dL (12.0-16.0); LYMPHOCYTES # (AUTO) 1.1 K/uL (2.5-16.5); LYMPHOCYTES % (AUTO) 16.7 % (20.5-51.1); MEAN CORPUSCULAR HEMOGLOBIN 32 pg (27-31); MEAN CORPUSCULAR HGB CONC 33 g/dL (33-37); MEAN CORPUSCULAR VOLUME 96.8 fL (80-94); MONOCYTES # (AUTO) 0.5 K/uL (0.8-1.0); MONOCYTES % (AUTO) 6.8 % (1.7-9.3); NEUTROPHILS # (AUTO) 4.7 K/uL (1.8-7.7); NEUTROPHILS % (AUTO) 69.3 % (42.2-75.2); PLATELET COUNT (AUTO) 208 K/uL (140-450); RED BLOOD CELL COUNT(AUTO) 3.21 MIL/uL (4.20-5.40); RED CELL DISTRIBUTION WIDTH 15.2 % (11.6-13.7); WHITE BLOOD COUNT (AUTO) 6.8 K/uL (4.8-10.8)
[2019-05-04 07:21] LABS: ANION GAP 13.5 (8-16); CARBON DIOXIDE 25.1 mmol/L (21-32); CHLORIDE 118 mmol/L (98-107); CREATININE 1.9 mg/dL (0.6-1.3); GLUCOSE 177 mg/dL (74-106); POTASSIUM 4.6 mmol/L (3.5-5.1); SODIUM SERUM 152 mmol/L (136-145); UREA NITROGEN, BLOOD 43 mg/dL (7-18)
[2019-05-04] MEDS: BLOOD GLUCOSE MONITORING 1 DEV DEV FS SCH ×4 (07:30→21:19)
[2019-05-04 08:00] VITALS: BP 135/55
[2019-05-04] MEDS ORDERED: LATANOPROST 0.005% OP 2.5 ML BTL OP SCH ×2 (09:00→09:31)
--- NOTE | 2019-05-04 09:40 | NUR ---
HOURLY ROUNDING PATIENT SLEEPING IN BED. EASILY AROUSABLE. NO SIGNS OF DISTRESS NOTED. RESPIRATIONS EVEN AND UNLABORED. SAFETY MEASURES IN PLACE AND CALL LIGHT WITHIN REACH. WILL CONTINUE TO MONITOR
[2019-05-04] MEDS: ASPIRIN 81 MG TAB.CHEW PO SCH (10:48)
[2019-05-04] MEDS: LOSARTAN 50 MG TAB PO SCH ×2 (10:48→21:01)
[2019-05-04] MEDS: CHOLECALCIFEROL 1,000 IU TAB PO SCH (10:48)
[2019-05-04] MEDS: FERROUS SULFATE 325 MG TABEC PO SCH ×2 (10:48→21:01)
[2019-05-04] MEDS: NACL 0.9% 1,000 ML IV SCH (10:49)
[2019-05-04] MEDS: CLOPIDOGREL 75 MG TAB PO SCH (10:49)
[2019-05-04] MEDS: POLYVINYL ALCOHOL 1.4% OP 15 ML SOL OP SCH ×3 (10:51→19:02)
--- NOTE | 2019-05-04 12:20 | NUR ---
HOURLY ROUNDING PT RESTING IN BED. NO SIGNS OF DISTRESS NOTED. RESPIRATIONS EVEN AND UNLABORED ON 4L O2 VIA NC. SAFETY MEASURES IN PLACE AND CALL LIGHT WITHIN REACH. WILL CONTINUE TO MONITOR
--- NOTE | 2019-05-04 15:34 | NUR ---
HOURLY ROUNDING. PT RESTING IN BED ASLEEP FAMILY AT BEDSIDE NO SIGNS OF DISTRESS NOTED. RESPIRATIONS EVEN AND UNLABORED ON 4L O2 VIA NC. SAFETY MEASURES IN PLACE AND BED ALARM ACTIVATED. WILL CONTINUE TO MONITOR
[2019-05-04 16:00] VITALS: BP 140/49
[2019-05-04] MEDS ORDERED: NACL 0.45% 1,000 ML IV SCH (16:45)
--- NOTE | 2019-05-04 18:10 | NUR ---
HOURLY ROUNDING. PT RESTING IN BED AWAKE. NO SIGNS OF DISTRESS NOTEDSAFETY MEASURES IN PLACE. WILL CONTINUE TO MONITOR
--- NOTE | 2019-05-04 18:45 | NUR ---
FAMILY AT BEDSIDE TALKING WITH DR. MUNOZ AT THIS TIME. PT IN STABLE CONDITION. Addendum: 05/04/19 at 1958 by Sonya Moreira RN WRONG PT
[2019-05-04] MEDS: DEXT 5% / NACL 0.45% 1,000 ML IV SCH (19:01)
[2019-05-04] MEDS: INSULIN LISPRO SLIDING SCALE 100 UNITS/ML VIAL SUBQ PRN ×2 (19:03→21:14)
--- NOTE | 2019-05-04 19:15 | NUR ---
GAVE REPORT TO VESSEL ENGINEER NURSE FLAVIA FOR CONTINUITY OF CARE. PT IN STABLE CONDITION.
--- NOTE | 2019-05-04 19:20 | NUR ---
RECEIVED PT SLEEPING, EASILY AROUSABLE TO TOUCH, MUMBLE SPEECH, RESPONDING TO NAME BUT CONFUSED DUE TO HX OF DEMENTIA, NO SOB NOTED, FLACC-0, ON O2 AT 4L VIA NASAL CANNULA, IVF INFUSING WELL, REMY CATHETER TO GRAVITY WITH CLEAR YELLOW URINE, SAFETY MEASURES IN PLACE, PT BEDBOUND, WILL REPOSITION Q2H AND OFFLOAD PRESSURE AREAS, SIDE RAILS UP AND BED ALARM ON, CALL LIGHT WITHIN REACH.
[2019-05-04] MEDS: OLANZapine 2.5 MG TAB PO SCH (21:01)
[2019-05-04] MEDS: LATANOPROST 0.005% OP 2.5 ML BTL OP SCH (21:02)
[2019-05-04] MEDS: INSULIN LANTUS 100 UNITS/ML 10 ML VIAL SUBQ SCH (21:13)
--- NOTE | 2019-05-04 21:20 | NUR ---
BLOOD SUGAR CHECKED WITH 245 RESULT, COVERAGE GIVEN, DUE PO MEDS CRUSHED AND GIVEN WITH APPLE SAUCE, TOLERATED WELL BUT WITH POOR APPETITE, PT OCCASIONALLY REMOVED NASAL CANNULA, REINFORCE TO PT BUT PT EASILY FORGETS, FREQUENT ROUNDS WILL BE MADE, ALL NEEDS ANTICIPATED.
[2019-05-05] VITALS: BP 147/62
--- NOTE | 2019-05-05 | NUR ---
PT SLEEPING, MOANS TO TOUCH, VITAL SIGNS STABLE, NO SIGNS OF PAIN OR SOB, IVF INFUSING WELL, OCCASIONAL MOIST COUGH NOTED, CONTINUE TO REPOSITION Q2H AND OFFLOAD PRESSURE AREAS, MONITORED CLOSELY.
--- NOTE | 2019-05-05 02:10 | NUR ---
PT SLEEPING, NASAL CANNULA TO THE SIDE OF NOSE, POSITION BACK TO RIGHT POSITION, NO RESP DISTRESS NOTED, CONTINUE TO MONITOR CLOSELY.
[2019-05-05] MEDS: DEXT 5% / NACL 0.45% 1,000 ML IV SCH ×3 (03:37→19:19)
[2019-05-05] MEDS: DEXTROSE 50% 50 ML SYR IVP PRN (05:30)
--- NOTE | 2019-05-05 05:30 | NUR ---
BLOOD SUGAR CHECKED WITH 38 RESULT, PT VERBALLY RESPONSIVE, D50 1 AMP GIVEN IVP, MONITORED CLOSELY.
--- NOTE | 2019-05-05 05:55 | NUR ---
BLOOD SUGAR RECHECKED WITH 166 RESULT, COVERAGE HELD FOR NOW, PT IN NO DISTRESS, IVF INFUSING WELL, FALL PRECAUTION IN PLACE, MONITORED CLOSELY.
[2019-05-05 06:29] LABS: ANION GAP 10.1 (8-16); CARBON DIOXIDE 27.2 mmol/L (21-32); CHLORIDE 117 mmol/L (98-107); GLUCOSE 182 mg/dL (74-106); POTASSIUM 4.3 mmol/L (3.5-5.1); SODIUM SERUM 150 mmol/L (136-145); UREA NITROGEN, BLOOD 34 mg/dL (7-18)
[2019-05-05] MEDS: BLOOD GLUCOSE MONITORING 1 DEV DEV FS SCH ×4 (06:34→21:00)
--- NOTE | 2019-05-05 07:07 | NUR ---
PT AWAKE, NO SIGNS OF DISTRESS, BEDSIDE REPORT GIVEN TO VICKIE SAMAYOA FOR CONTINUITY OF CARE.
[2019-05-05 07:18] LABS: BASOPHILS % (AUTO) 0.6 % (0.0-2.0); EOSINOPHILS # (AUTO) 0.1 K/uL (0-0.4); EOSINOPHILS % (AUTO) 1.4 % (0.0-4.0); HEMATOCRIT 29.5 % (36-48); HEMOGLOBIN 9.9 g/dL (12.0-16.0); LYMPHOCYTES # (AUTO) 1.2 K/uL (2.5-16.5); LYMPHOCYTES % (AUTO) 17.9 % (20.5-51.1); MEAN CORPUSCULAR HEMOGLOBIN 33 pg (27-31); MEAN CORPUSCULAR HGB CONC 34 g/dL (33-37); MEAN CORPUSCULAR VOLUME 97.5 fL (80-94); MONOCYTES # (AUTO) 0.6 K/uL (0.8-1.0); MONOCYTES % (AUTO) 8.1 % (1.7-9.3); NEUTROPHILS # (AUTO) 4.9 K/uL (1.8-7.7); PLATELET COUNT (AUTO) 182 K/uL (140-450); RED BLOOD CELL COUNT(AUTO) 3.03 MIL/uL (4.20-5.40); WHITE BLOOD COUNT (AUTO) 6.8 K/uL (4.8-10.8)
--- NOTE | 2019-05-05 07:25 | NUR ---
RECEIVED REPORT FROM NIGHT NURSE. PT IN BED, ASLEEP, NO DISTRESS NOTED. IV IN PLACE PATENT AND ASYMPTOMATIC INFUSING PER ORDER IN L AC 20G. RESPIRATIONS EVEN AND UNLABORED ON 4L O2 VIA NASAL CANULA. REMY CATHETER IN PLACE. PT IS BEDBOUND, SKIN INTACT. SAFETY MEASURES IN PLACE, CALL LIGHT WITHIN REACH, BED IN LOW POSITION. WILL CONTINUE TO MONITOR.
[2019-05-05 08:00] VITALS: BP 157/58
--- NOTE | 2019-05-05 08:43 | NUR ---
PATIENT HAS BEEN SCREENED AND CATEGORIZED HIGH NUTRITION RISK. PATIENT WILL BE SEEN WITHIN 1-2 DAYS OF ADMISSION. 05/05/[address]
[2019-05-05] MEDS: LOSARTAN 50 MG TAB PO SCH ×2 (09:02→22:39)
[2019-05-05] MEDS: FERROUS SULFATE 325 MG TABEC PO SCH ×2 (09:02→22:39)
[2019-05-05] MEDS: ASPIRIN 81 MG TAB.CHEW PO SCH (09:02)
[2019-05-05] MEDS: CLOPIDOGREL 75 MG TAB PO SCH (09:03)
[2019-05-05] MEDS: CHOLECALCIFEROL 1,000 IU TAB PO SCH (09:03)
[2019-05-05] MEDS: POLYVINYL ALCOHOL 1.4% OP 15 ML SOL OP SCH ×3 (09:04→17:18)
--- NOTE | 2019-05-05 09:48 | NUR ---
MEDICATIONS ADMINISTERED PER ORDER. PT TOLERATED WELL, NO DISTRESS NOTED. SAFETY MEASURES IN PLACE. CALL LIGHT WITHIN REACH. WILL CONTINUE TO MONITOR.
--- NOTE | 2019-05-05 11:47 | NUR ---
PT IN BED, ASLEEP, NO DISTRESS NOTED, FLACC 0. RESPIRATIONS EVEN AND UNLABORED ON 4L O2 VIA NC. SAFETY MEASURES IN PLACE. CALL LIGHT WITHIN REACH. WILL CONTINUE TO MONITOR.
--- NOTE | 2019-05-05 12:23 | NUR ---
*S.T. Bedside Swallow Eval completed* Pt presents w/ mild-mod oropharyngeal dysphagia c/b inability to chew solids, likely due to confusion, slow oral prep and delayed initiation of pharyngeal swallow initiation. No overt s/s aspiration observed. Pt unable to self-feed, but demonstrated other purposeful movements such as wiping mouth and nose. Recommend: 1) Continue pureed diet, advance to thin liquids. Straws okay. 2) P.O. meds crushed and mixed w/ puree such as applesauce. 3) 1:1 feeder w/ aspiration precautions 4) Oral care after meals Pt presents w/ limited rehab potential. No further swallow tx indicated at this time. DC to [facility] [place] care at this time. Endorsed to VICKIE Delgado. Time [id number]
--- NOTE | 2019-05-05 13:15 | NUR ---
PTS FAMILY MEMBER MYRA AT THE BEDSIDE, ANSWERS HIS CONCERNS. PT IN BED ASLEEP, NO DISTRESS NOTED. SAFETY MEASURES IN PLACE, CALL LIGHT WITHIN REACH. WILL CONTINUE TO MONITOR.
--- NOTE | 2019-05-05 15:05 | NUR ---
DC PLANN[age] YRS OLD FEMALE PATIENT [place] [facility] [place] AND AMS . PT HAS A HX OF ALZHEIMER'S DEMENTIA HTN DM AND CHRONIC DVT ON ANTICOAGULATION . CXRAY BIBASILAR ATELECTASIS ,STARTED IV HYDRATION , CONTINUE HOME MEDS ,PT EVAL . DC PLAN [place] GO [place] [facility] [place] TO FOLLOW. Addendum: 05/06/19 at 1143 by Taylor Malone CM DC PLANNING: NA+INCREASED TO 154 CONTINUE IVF , FEED HANDLER CONSULTED, SWALLOWING EVAL DONE RECOMMENDED PUREE DIET , REPEAT C XRAY LOW LUNG VOLUME STABLE . DC PLAN [place] GO [place] [facility] [place] CM TO FOLLOW. Addendum: 05/07/19 at 1038 by Taylor Malone CM DC PLANNING [place]ED ALL THE PAPER [place] [facility] [place] SPOKE WITH FLORY PT CAN GO TO ROOM 37C UNDER THE CAR OF DR LYN # TO GIVE REPORT [phone] CALLED [facility] TO GET AUTH FOR TRANSPORT LEFT A MESSAGE
--- NOTE | 2019-05-05 15:09 | NUR ---
05/05/19 RD INITIAL ASSESSMENT COMPLETED PLEASE REFER TO NUTRITION ASSESSMENT UNDER CARE ACTIVITY FOR ESTIMATED NUTRITIONAL NEEDS. 1. CONTINUE PUREE CCHO 60GM DIET TOLERATED 2. CONTINUE PROVIDING FEEDING ASSISTANCE WITH MEALS 3. IF PO INTAKE <75% RECOMMEND GLUCERNA BID 4. RD PROVIDED NUTRITION EDUCATION HANDOUT FOR HIGH PROTEIN AND CALORIE DIET 5. RD TO FOLLOW-UP 3-5 DAYS, MODERATE RISK JUANY HUERTA RD
--- NOTE | 2019-05-05 15:31 | NUR ---
PT IN BED ASLEEP, NO DISTRESS NOTED, FLACC 0, RESPIRATIONS EVEN AND UNLABORED ON 4L O2 NC. SAFETY MEASURES IN PLACE. CALL LIGHT WITHIN REACH. WILL CONTINUE TO MONITOR.
[2019-05-05 16:00] VITALS: BP 133/48
--- NOTE | 2019-05-05 17:39 | NUR ---
EYE DROPS INSTILLED AT THIS TIME. PT TOLERATED WELL, NO DISTRESS NOTED. STABLE CONDITION. SAFETY MEASURES IN PLACE, CALL LIGHT WITHIN REACH. WILL CONTINUE TO MONITOR.
--- NOTE | 2019-05-05 18:47 | NUR ---
PT IN STABLE CONDITION. WILL ENDORSE TO UNIT SECRETARY FOR CONTINUITY OF CARE.
--- NOTE | 2019-05-05 19:30 | NUR ---
RECEIVED REPORT FROM DANITA FRY AT BEDSIDE FOR CONTINUITY OF CARE, PT IN STABLE CONDITION.
--- NOTE | 2019-05-05 20:00 | NUR ---
PT IN BED AOX1, WITH N/C AT 4 LITERS. PT IS ALERT AND AROUSABLE TO NAME AND LIGHT TOUCH. PT HAS NO S/S OF PAIN OR DISTRESS NOTED., HOWEVER PT IS CONFUSED AND TRIES TO TAKE OFF SUPPLEMENTAL 02.IV SITE INTACT AND RUNNING D5 1/2NS AT 120 MLS/HR ORDERED. V/S FOLLOWS: T 98.9 P 64 R 20 B/P 113/64 02 95% WITH 4 LITERS VIA N/C. ALL FALLS PRECAUTIONS IN PLACE .
--- NOTE | 2019-05-05 21:00 | NUR ---
PT WAS TURNED, CHANGED AND REPOSITIONED IN BED. ALL FALLS PROTOCOL IN PLACE AND CALL RUIZ IN REACH. PT GIVEN DUE MEDS OF COZAAR, FERROUS SULFATE, ZYPREXA, AND HEPARIN GIVEN ORDERED. MEDICATION EDUCATION PROVIDED AT BEDSIDE, PT UNABLE TO COMPREHEND.
[2019-05-05] MEDS: OLANZapine 2.5 MG TAB PO SCH (22:40)
[2019-05-05] MEDS: LATANOPROST 0.005% OP 2.5 ML BTL OP SCH (22:49)
[2019-05-05] MEDS: INSULIN LISPRO SLIDING SCALE 100 UNITS/ML VIAL SUBQ PRN (22:58)
[2019-05-06] VITALS: BP 162/42
--- NOTE | 2019-05-06 | NUR ---
PT IN BED NO S/S OF PAIN OR DISTRESS NOTED. REMY CATH WAS DEFLATED THEN REINFLATED DUE TO LEAKING OF REMY CATHETER. PT TURNED, CHANGED AND REPOSITIONED IN BED. ALL SAFETY MEASURES IN PLACE.
[2019-05-06] MEDS: DEXT 5% / NACL 0.45% 1,000 ML IV SCH ×2 (03:15→13:35)
--- NOTE | 2019-05-06 06:00 | NUR ---
IV SITE CAME OUT TRIED X3 ATTEMPTS, VEINS WERE BLOWN. RAUL ENDORSE TO DAYSHIFT TO REINSERT LINE. PT FINGERSTICK IS, . SHE WAS GIVEN OJ THEN FINGERSTICK RETAKEN, IT WAS 127.
[2019-05-06 06:05] LABS: BASOPHILS % (AUTO) 0.6 % (0.0-2.0); EOSINOPHILS # (AUTO) 0.3 K/uL (0-0.4); EOSINOPHILS % (AUTO) 3.4 % (0.0-4.0); HEMATOCRIT 30.2 % (36-48); HEMOGLOBIN 9.7 g/dL (12.0-16.0); LYMPHOCYTES # (AUTO) 1.9 K/uL (2.5-16.5); LYMPHOCYTES % (AUTO) 24.7 % (20.5-51.1); MEAN CORPUSCULAR HEMOGLOBIN 32 pg (27-31); MEAN CORPUSCULAR HGB CONC 32 g/dL (33-37); MEAN CORPUSCULAR VOLUME 100.6 fL (80-94); MONOCYTES # (AUTO) 0.5 K/uL (0.8-1.0); MONOCYTES % (AUTO) 6.6 % (1.7-9.3); NEUTROPHILS % (AUTO) 64.7 % (42.2-75.2); PLATELET COUNT (AUTO) 173 K/uL (140-450); RED CELL DISTRIBUTION WIDTH 15.6 % (11.6-13.7); WHITE BLOOD COUNT (AUTO) 7.8 K/uL (4.8-10.8)
[2019-05-06] MEDS: BLOOD GLUCOSE MONITORING 1 DEV DEV FS SCH ×4 (06:26→21:55)
[2019-05-06 06:31] LABS: ANION GAP 11.9 (8-16); CARBON DIOXIDE 27.3 mmol/L (21-32); CHLORIDE 119 mmol/L (98-107); CREATININE 1.8 mg/dL (0.6-1.3); GLUCOSE 56 mg/dL (74-106); POTASSIUM 4.2 mmol/L (3.5-5.1); SODIUM SERUM 154 mmol/L (136-145); UREA NITROGEN, BLOOD 34 mg/dL (7-18)
[2019-05-06 06:43] LABS: MAGNESIUM 1.9 mg/dL (1.8-2.4); PHOSPHORUS 2.5 mg/dL (2.5-4.9)
[2019-05-06 08:00] VITALS: BP 115/84
[2019-05-06 08:07] LABS: FERRITIN 411 ng/mL (15-150)
[2019-05-06 08:50] LABS: TRANSFERRIN 131 mg/dL (200-370)
[2019-05-06] MEDS: FERROUS GLUCONATE 324 MG TAB PO SCH (08:56)
[2019-05-06] MEDS: POLYVINYL ALCOHOL 1.4% OP 15 ML SOL OP SCH ×3 (08:56→16:53)
[2019-05-06] MEDS: ASPIRIN 81 MG TAB.CHEW PO SCH (08:57)
[2019-05-06] MEDS: CHOLECALCIFEROL 1,000 IU TAB PO SCH (08:57)
[2019-05-06] MEDS: ASCORBIC ACID 500 MG TAB PO SCH (08:57)
[2019-05-06] MEDS: FERROUS SULFATE 325 MG TABEC PO SCH ×2 (08:57→21:54)
--- NOTE | 2019-05-06 08:57 | NUR ---
GIVEN MORNING MEDICATIONS PO CRUSHED WITH APPLESAUCE. PATIENT TOLERATED WELL. EXPLAINED TO PATIENT MED AND SIDE EFFECTS. PATIENT VERBALIZED UNDERSTANDING. WILL CONTINUE TO MONITOR
[2019-05-06] MEDS: LOSARTAN 50 MG TAB PO SCH ×2 (08:58→21:54)
[2019-05-06] MEDS: CLOPIDOGREL 75 MG TAB PO SCH (08:58)
--- NOTE | 2019-05-06 10:23 | NUR ---
CHANGED IV SITE TO LEFT HAND G20, FLUSHED WELL.
--- NOTE | 2019-05-06 11:30 | NUR ---
BLOOD GLUCOSE CHECK: 300. WILL GIVE INSULIN COVERAGE
[2019-05-06] MEDS: INSULIN LISPRO SLIDING SCALE 100 UNITS/ML VIAL SUBQ PRN ×3 (12:06→21:57)
--- NOTE | 2019-05-06 12:09 | NUR ---
GIVEN 4 UNITS OF INSULIN FOR BLOOD GLUCOSE 300. GIVEN IT IN THE LEFT UPPER ARM. EXPLAINED TO PATIENT MED AND SIDE EFFECTS. WILL CONTINUE TO MONITOR
--- NOTE | 2019-05-06 12:49 | NUR ---
ARTIFICIAL TEARS GIVEN TO BOTH EYES.
--- NOTE | 2019-05-06 12:55 | NUR ---
ASSISTED PATIENT EATING LUNCH. PATIENT ATE 70% OF HER LUNCH.
--- NOTE | 2019-05-06 13:26 | NUR ---
PATIENT IS HAVING NOSE BLEED. REMOVE NASAL CANNULA IT IRRITATES PATIENT'S NOSE.
--- NOTE | 2019-05-06 13:34 | NUR ---
NOSE BLEED STOPS. WILL CONTINUE OT MONITOR
--- NOTE | 2019-05-06 13:58 | NUR ---
PATIENT'S TOLERATING ROOM AIR. O2SAT 97%.
--- NOTE | 2019-05-06 14:38 | NUR ---
PATIENT IS SLEEPING COMFORTABLY AT THIS TIME. NO SIGNS OF DISTRESS NOTED. ROOM AIR. FAMILY AT BEDSIDE. WILL CONTINUE TO MONITOR
[2019-05-06 16:00] VITALS: BP 135/81
--- NOTE | 2019-05-06 16:27 | NUR ---
VITAL SIGNS CHECK. BLOOD GLUCOSE: 323. WILL GIVE COVERAGE
--- NOTE | 2019-05-06 16:53 | NUR ---
ARTIFICIAL TEARS GIVEN TO BOTH EYES.
--- NOTE | 2019-05-06 17:31 | NUR ---
GIVEN 6 UNITS OF INSULIN FOR BLOOD GLUCOSE 323. GIVEN IT IN THE LEFT UPPER ARM. EXPLAINED TO PATIENT INSULIN. BED IN LOW POSITION. CALL LIGHT IS WITHIN REACH. WILL CONTINUE TO MONITOR
--- NOTE | 2019-05-06 18:45 | NUR ---
PATIENT IS SLEEPING AT THIS TIME. NO SIGNS OF DISTRESS NOTED. BED IN LOW POSITION. CALL LIGHT IS WITHIN REACH
--- NOTE | 2019-05-06 19:15 | NUR ---
ENDORSED PATIENT TO THE ASSISTANT EXECUTIVE HOUSEKEEPER NURSE FOR CONTINUITY OF CARE. BEING ASSISTED EATING. RESPIRATIONS EVEN AND UNLABORED. ROOM AIR. VISIBLE CHEST RISE. PATIENT IS IN STABLE CONDITION
--- NOTE | 2019-05-06 19:25 | NUR ---
RECEIVED PT IN STABLE CONDITION FROM AM NURSE. MED SURG PT. AWAKE,ALERT AND ORIENTED X1. BED REST . WITH IVF INFUSING WELL ON THE LT HAND G#20 .CLEAR AND PATENT. REMY CATHETER DRAINING WELL . HABILITATION ASSISTANT FEEDING PT AT THIS TIME. NO SOB NOR ANY DISCOMFORT NOTED. BEDREST. FREQ ROUNDS NEEDED. ON CONTACT ISOLATION. BED ON LOW POSITION. SIDE RAILS UP X2. CALL LIGHT PLACED WITHIN REACH. WILL CONTINUE TO MONITOR.
[2019-05-06] MEDS: OLANZapine 2.5 MG TAB PO SCH (21:54)
[2019-05-06] MEDS: LATANOPROST 0.005% OP 2.5 ML BTL OP SCH (21:54)
--- NOTE | 2019-05-06 21:55 | NUR ---
PT ABLE TO TAKE ALL DUE MEDS. WITH SOME APPLE SAUCE. TOLERATED WELL.
--- NOTE | 2019-05-06 23:00 | NUR ---
HAS BEEN REPOSITIONED FOR COMFORT. NO C/O ANY PAIN NOR DISCOMFORT NOTED.
[2019-05-07 00:45] VITALS: BP 131/52
--- NOTE | 2019-05-07 01:00 | NUR ---
ASLEEP. NO S/S OF ANY DISCOMFORT NOTED.
[2019-05-07] MEDS: DEXT 5% / NACL 0.45% 1,000 ML IV SCH ×2 (02:05→03:54)
[2019-05-07] MEDS: INSULIN LISPRO SLIDING SCALE 100 UNITS/ML VIAL SUBQ PRN (02:26)
--- NOTE | 2019-05-07 04:00 | NUR ---
[id number] FOR COMFORT. NO S/S OF ANY PAIN NOR DISCOMFORT NOTED.
[2019-05-07 06:20] LABS: BASOPHILS % (AUTO) 0.2 % (0.0-2.0); EOSINOPHILS # (AUTO) 0.2 K/uL (0-0.4); HEMATOCRIT 27.7 % (36-48); HEMOGLOBIN 8.9 g/dL (12.0-16.0); LYMPHOCYTES # (AUTO) 1.9 K/uL (2.5-16.5); LYMPHOCYTES % (AUTO) 23.4 % (20.5-51.1); MEAN CORPUSCULAR HEMOGLOBIN 32 pg (27-31); MEAN CORPUSCULAR HGB CONC 32 g/dL (33-37); MEAN CORPUSCULAR VOLUME 100.2 fL (80-94); MONOCYTES # (AUTO) 0.5 K/uL (0.8-1.0); MONOCYTES % (AUTO) 6.5 % (1.7-9.3); NEUTROPHILS # (AUTO) 5.4 K/uL (1.8-7.7); NEUTROPHILS % (AUTO) 66.9 % (42.2-75.2); PLATELET COUNT (AUTO) 158 K/uL (140-450); RED BLOOD CELL COUNT(AUTO) 2.77 MIL/uL (4.20-5.40); RED CELL DISTRIBUTION WIDTH 15.5 % (11.6-13.7); WHITE BLOOD COUNT (AUTO) 8.1 K/uL (4.8-10.8)
[2019-05-07 06:24] LABS: ANION GAP 10.1 (8-16); CARBON DIOXIDE 26.4 mmol/L (21-32); CHLORIDE 116 mmol/L (98-107); CREATININE 1.7 mg/dL (0.6-1.3); GLUCOSE 102 mg/dL (74-106); POTASSIUM 3.5 mmol/L (3.5-5.1); SODIUM SERUM 149 mmol/L (136-145); UREA NITROGEN, BLOOD 33 mg/dL (7-18)
[2019-05-07] MEDS: BLOOD GLUCOSE MONITORING 1 DEV DEV FS SCH ×2 (06:30→11:51)
--- NOTE | 2019-05-07 06:30 | NUR ---
BLOOD SUGAR THIS AM RESULT 110. NO INSULIN NEEDED.
[2019-05-07 06:34] LABS: MAGNESIUM 1.7 mg/dL (1.8-2.4); PHOSPHORUS 2.2 mg/dL (2.5-4.9)
[2019-05-07] MEDS ORDERED: MAGNESIUM OXIDE 400 MG TAB PO ONE (06:40)
[2019-05-07] MEDS ORDERED: NACL 0.45% 1,000 ML IV SCH (06:40)
--- NOTE | 2019-05-07 07:20 | NUR ---
ENDORSED PT IN STABLE CONDITION TO AM NURSE.
--- NOTE | 2019-05-07 07:22 | NUR ---
RECEIVED BEDSIDE REPORT FROM STAFF ELECTRICAL ENGINEER NURSE GREGORIO FROM CONTINUITY OF CARE. PT IS RESTING ON BED. RESPIRATION EVEN AND UNLABORED ON 4LPM VIA NC. NO SIGNS OF DISTRESS NOTED. IV ON RAC 20G, CLEAN AND INTACT, INFUSING PER MD ORDER. SKIN CLEAN AND DRY. PT IS INCONTINENT AND BEDRSET. DISCUSSED PLAN OF CARE WITH PT AND REINFORCEMENT NEEDED DUE TO PT'S MENTAL STATUS. CONTACT PRECAUTION AND FALL RISK PRECAUTION IN PLACE. SAFETY MEASURES IN PLACE. BED IN LOW POSITION AND CALL LIGHT WITHIN REACH.
[2019-05-07 08:00] VITALS: BP 108/75
[2019-05-07] MEDS ORDERED: [UNRECOGNIZED DRUG - OTHER] IV (08:53)
[2019-05-07] MEDS ORDERED: SODIUM PHOS / POTASSIUM PHOS 1 PKT PDR PO SCH (09:00)
[2019-05-07] MEDS: FERROUS SULFATE 325 MG TABEC PO SCH (09:07)
[2019-05-07] MEDS: CHOLECALCIFEROL 1,000 IU TAB PO SCH (09:07)
[2019-05-07] MEDS: ASCORBIC ACID 500 MG TAB PO SCH (09:07)
[2019-05-07] MEDS: CLOPIDOGREL 75 MG TAB PO SCH (09:08)
[2019-05-07] MEDS: ASPIRIN 81 MG TAB.CHEW PO SCH (09:08)
[2019-05-07] MEDS: FERROUS GLUCONATE 324 MG TAB PO SCH (09:08)
[2019-05-07] MEDS: POLYVINYL ALCOHOL 1.4% OP 15 ML SOL OP SCH ×2 (09:09→13:35)
[2019-05-07] MEDS: LOSARTAN 50 MG TAB PO SCH (09:15)
--- NOTE | 2019-05-07 09:16 | NUR ---
CHECKED BP PRIOR TO MEDS ADMINISTRATION, BP 127/66 PULSE 97. MED EDUCATION PROVIDED AND REINFORCEMENT NEEDED DUE TO PT'S MENTAL STATUS, CRUSHED MEDS AND MIXED IN APPLE SAUCE, PT TOLERATED MEDS WELL. ADMINISTERED EYE DROP ON BOTH EYES. ADMINISTERED IVF 0.45 NS AND INFUSING PER MD ORDER 80 ML/HR. PT IS RESTING ON BED. RESPIRATION EVEN AND UNLABORED ON 4LPM VIA NC. NO SIGNS OF DISTRESS NOTED. SAFETY MEASURES IN PLACE. BED ALARM ACTIVATED.
--- NOTE | 2019-05-07 09:28 | NUR ---
CALLED PHARMACY FOR MAG-OXIDE PO DUE TO UNABLE TO REMOVE FROM OMNICELL, PER VOLLEYBALL PLAYER, ORDER WAS DISCONTINUED.
--- NOTE | 2019-05-07 11:24 | NUR ---
PT IS RESTING ON BED AND AROUSABLE TO VOICE. DENIED PAIN, SOB AND DIZZINESS. NO SIGNS OF DISTRESS NOTED. SAFETY MEASURES IN PLACE. BED ALARM ACTIVATED.
--- NOTE | 2019-05-07 12:12 | NUR ---
CALLED PT'S PERSON TO CONTACT JUANYCHANO ESCOBAR AT [phone] 2X AND NO ANSWER. LEFT A MESSAGE WITH CALL BACK NUMBER.
--- NOTE | 2019-05-07 12:14 | NUR ---
CALLED [facility] AND SPOKE WITH JEFFERY RN TO GIVE REPORT. GAVE FULL REPORT AND ANSWERED ALL JEFFERY'S QUESTIONS. JEFFERY WAS AWARE THAT PT IS GOING TO TRANSFER BACK TO HER FACILITY AT 1600 AND GO TO ROOM ROOM 37C UNDER THE CARE OF DR LYN. PROVIDED A CALL BACK NUMBER FOR FURTHER INQUIRY.
[2019-05-07] MEDS ORDERED: MAGNESIUM OXIDE 400 MG TAB PO SCH (12:30)
--- NOTE | 2019-05-07 12:34 | NUR ---
RECEIVED A CALL BACK FROM JUANY HANLEY. JUANY WAS AWARE THAT PT IS GOING TO TRANSFER BACK TO [facility] FOR IVF.
--- NOTE | 2019-05-07 13:35 | NUR ---
ADMINISTERED MEDS PER MD ORDER,CRUSHED MEDS AND MIXED IN APPLE SAUCE, PT TOLERATED MEDS WELL. ADMINISTERED EYE DROP ON BOTH EYES. MEDS EDUCATION PROVIDED AND REINFORCEMENT NEEDED DUE TO PT'S MENTAL STATUS. PT IS RESTING ON BED. RESPIRATION EVEN AND UNLABORED ON 4LPM VIA NC. NO SIGNS OF DISTRESS NOTED. SAFETY MEASURES IN PLACE. BED ALARM ACTIVATED.
--- NOTE | 2019-05-07 15:10 | NUR ---
DISCHARGE INSTRUCTION PROVIDED TO PT AT BEDSIDE, EDUCATED PT ON MEDICATION REGIMEN, SIDE EFFECTS, DIET, AND KEEP HYDRATE BY INCREASE INTAKE OF LIQUID, REINFORCEMENT NEEDED DUE TO PT'S MENTAL STATUS. KEY ACCOUNT REPRESENTATIVE CHANGED PT INTO PINK GOWN. REMOVED REMY CATHETER PER MD ORDER AND PT TOLERATED WELL. REMOVED ALL ARM BANDS. KEPT IV WITHIN PT'S L HAND 22G, SL. PROVIDED DISCHARGE PRINT OUT PACKAGED TO TRANSPORT PERSONNEL. PT IS GOING TO TRANSFER WITH [facility]. PT IS IN STABLE CONDITION.
== END 2019-05-07 15:10 | DRG 682 ==
LOC: MED 12:53 → MTU 15:36
PROVIDERS: ADMIT General Practice; ATTEND General Practice
DX: N17.0 Acute kidney failure with tubular necrosis (principal); G93.41 Metabolic encephalopathy; E43 Unspecified severe protein-calorie malnutrition; E87.0 Hyperosmolality and hypernatremia; I82.509 Chronic embolism and thrombosis of unspecified deep veins of unspecified lower extremity; I69.954 Hemiplegia and hemiparesis following unspecified cerebrovascular disease affecting left non-dominant side; F02.81 Dementia in other diseases classified elsewhere, unspecified severity, with behavioral disturbance; E86.0 Dehydration; I10 Essential (primary) hypertension; E03.9 Hypothyroidism, unspecified; Z66 Do not resuscitate; G30.9 Alzheimer's disease, unspecified; E11.21 Type 2 diabetes mellitus with diabetic nephropathy; K21.9 Gastro-esophageal reflux disease without esophagitis; M19.90 Unspecified osteoarthritis, unspecified site; E11.65 Type 2 diabetes mellitus with hyperglycemia; R13.10 Dysphagia, unspecified; Z88.6 Allergy status to analgesic agent; Z79.84 Long term (current) use of oral hypoglycemic drugs; Z88.8 Allergy status to other drugs, medicaments and biological substances; Z79.899 Other long term (current) drug therapy; Z74.01 Bed confinement status
CPT/HCPCS: 36415; 51702; 70450; 71045; 80048; 80053; 80305; 81003; 82140; 82550; 82607; 82728; 82746; 82803; 82948; 83036; 83540; 83605; 83690; 83735; 83880; 84100; 84439; 84443; 84484; 85025; 85045; 85610; 85730; 87081; 92610; 93005; 97110; 97112; 97161-GP; 97530; 99285; G0480; G0482; J1644; J1815; J7030; Q0092

== ENCOUNTER 2019-09-05 13:46 | Inpatient (IN) | payer OTHER, SELFPAY ==
[~2019-09-05] VITALS: Ht 165.1 cm; Wt 69.4 kg
[2019-09-05] MEDS: BLOOD GLUCOSE MONITORING 1 DEV DEV FS SCH (01:25)
[~2019-09-05 13:46] MED LIST changes: -ROC250I IV; +[UNRECOGNIZED DRUG - OTHER] IV
[2019-09-05 13:51] VITALS: BP 118/56
--- NOTE | 2019-09-05 13:57 | NUR ---
89 YO FEMALE BIBA FOR ABNORMAL LABS AT [facility]. PT STABLE AND VSS. PT HAS NO COUGH OR FEVER. BUN- 93 NA- 160
[2019-09-05 16:19] LABS: BASOPHILS # (AUTO) 0.1 K/uL (0.00-0.22); BASOPHILS % (AUTO) 1.4 % (0.0-2.0); EOSINOPHILS # (AUTO) 0.5 K/uL (0-0.4); EOSINOPHILS % (AUTO) 5.3 % (0.0-4.0); HEMATOCRIT 36.2 % (36-48); HEMOGLOBIN 11.4 g/dL (12.0-16.0); LYMPHOCYTES # (AUTO) 3.3 K/uL (2.5-16.5); LYMPHOCYTES % (AUTO) 34.2 % (20.5-51.1); MEAN CORPUSCULAR HEMOGLOBIN 32 pg (27-31); MEAN CORPUSCULAR HGB CONC 32 g/dL (33-37); MEAN CORPUSCULAR VOLUME 102.2 fL (80-94); MONOCYTES # (AUTO) 0.6 K/uL (0.8-1.0); MONOCYTES % (AUTO) 5.7 % (1.7-9.3); NEUTROPHILS # (AUTO) 5.2 K/uL (1.8-7.7); NEUTROPHILS % (AUTO) 53.4 % (42.2-75.2); PLATELET COUNT (AUTO) 147 K/uL (140-450); RED BLOOD CELL COUNT(AUTO) 3.54 MIL/uL (4.20-5.40); RED CELL DISTRIBUTION WIDTH 15.4 % (11.6-13.7); WHITE BLOOD COUNT (AUTO) 9.7 K/uL (4.8-10.8)
[2019-09-05 16:32] LABS: ALBUMIN 2.7 g/dL (3.4-5.0); ANION GAP 13.3 (8-16); ASPARTATE AMINOTRANSFERASE 20 U/L (15-37); CARBON DIOXIDE 28.9 mmol/L (21-32); CHLORIDE 126 mmol/L (98-107); CREATININE 2.7 mg/dL (0.6-1.3); GLUCOSE 201 mg/dL (74-106); POTASSIUM 5.2 mmol/L (3.5-5.1); TOTAL BILIRUBIN 0.2 mg/dL (0.0-1.0)
[2019-09-05 16:37] LABS: SODIUM SERUM 163 mmol/L (136-145); UREA NITROGEN, BLOOD 89 mg/dL (7-18)
--- NOTE | 2019-09-05 16:40 | NUR ---
LAB CALLED WITH CRITICAL VALUES: BUN 89 CREATININE 2.7 SODIUM 163 CHLORIDE 126 ERMD MADE AWARE
[2019-09-05] MEDS ORDERED: NACL 0.9% 500 ML IV ONE (16:50)
[2019-09-05] MEDS ORDERED: SODIUM ZIRCONIUM CYCLOSILICATE 10 GM POWD.PACK PO ONE (17:35)
[2019-09-05] MEDS ORDERED: INSULIN REGULAR, HUMAN 100 UNIT/ML VIAL SUBQ ONE (17:35)
[2019-09-05] MEDS ORDERED: ONDANSETRON 4 MG/2 ML VIAL IM/IVP PRN (17:40)
[2019-09-05] MEDS ORDERED: ACETAMINOPHEN 325 MG TAB PO PRN (17:40)
[2019-09-05] MEDS ORDERED: DOCUSATE SODIUM 100 MG GELCAP PO PRN (17:40)
[2019-09-05 17:46] LABS: PROTHROMBIN TIME 10.3 secs (10.8-13.4)
--- NOTE | 2019-09-05 17:50 | NUR ---
PT LAYING IN BED AWAKE. PT ONLY A/OX1. NOB AND NO COUGH. SON IN WAITING ROOM.
[2019-09-05 19:13] LABS: MAGNESIUM 3.2 mg/dL (1.8-2.4); PHOSPHORUS 3.6 mg/dL (2.5-4.9); THYROID STIMULATING HORMONE 3.55 uIU/mL (0.34-3.74)
[2019-09-05 19:14] LABS: CHLORIDE 127 mmol/L (98-107); POTASSIUM 5.3 mmol/L (3.5-5.1)
[2019-09-05 19:15] LABS: ANION GAP 13.8 (8-16); CARBON DIOXIDE 26.5 mmol/L (21-32); CREATININE 2.6 mg/dL (0.6-1.3); GLUCOSE 204 mg/dL (74-106); UREA NITROGEN, BLOOD 90 mg/dL (7-18)
--- NOTE | 2019-09-05 19:15 | NUR ---
RECIEVED REPORT FROM VICKIE MORGAN. TRANSFER OF CARE AT THIS TIME.
[2019-09-05 19:18] LABS: SODIUM SERUM 162 mmol/L (136-145)
--- NOTE | 2019-09-05 21:00 | NUR ---
STRAIGHT CATH ATTEMPTED. PT HAS NO URINE AT THIS TIME. ERMD MADE AWARE. WILL ENDORSE TO FLOOR NURSE
[2019-09-05] MEDS ORDERED: CLOP75TA26 PO (21:17)
[2019-09-05] MEDS ORDERED: BISACODYL 10 MG SUPP RC PRN (21:20)
[2019-09-05] MEDS ORDERED: MAGNESIUM HYDROXIDE 2400 MG/30 ML UDC PO PRN (21:20)
[2019-09-05] MEDS ORDERED: SODIUM PHOSPHATE 118 ML ENEM RC PRN (21:20)
--- NOTE | 2019-09-05 21:20 | NUR ---
PT SLEEPING COMFORTABLY IN BED. EQUAL CHEST RISE AND FALL. FLAT SURFACER JEWEL IN PLACE. BED LOCKED AND IN LOWEST POSITION.
--- NOTE | 2019-09-05 23:15 | NUR ---
PT SLEEPING COMFORTABLY IN BED. EQUAL CHEST RISE AND FALL. PRODUCTION LINE SOLDERER IN PLACE. BED LOCKED AND IN LOWEST POSITION.
--- NOTE | 2019-09-05 23:25 | NUR ---
RECEIVED BEDSIDE REPORT FROM ER NURSE. PATIENT IS AWAKE AND COOPERATIVE. AAOX2. RESPIRATION EVEN UNLABORED ON ROOM AIR. NO DISTRESS NOTED. SKIN IS WARM AND DRY. IV PATENT AND INTACT. HEART RATE REGULAR. LUNGS SOUNDS CLEAR. BOWEL SOUNDS PRESENT IN ALL QUADRANTS. ABDOMEN SOFT AND NON-TENDER. LAST BM 09/05/19. MRSA SCREEN DONE. VITALS WERE TAKEN. ORIENT PATIENT TO ROOM, STAFF, AND CALL LIGHT. PLAN OF CARE WAS DISCUSSED. ALL SAFETY MEASURES IN PLACE. BED IS AT LOW POSITION. CALL LIGHT WITHIN REACH. WILL CONTINUE TO MONITOR.
--- NOTE | 2019-09-05 23:25 | NUR ---
Patient will be admitted to care of [facility]. Admited to TELE. Will go to room 115. Belongings list completed. Report to VICKIE BASHIR.
[2019-09-06] MEDS ORDERED: SODIUM ZIRCONIUM CYCLOSILICATE 10 GM POWD.PACK ONE (00:14)
--- NOTE | 2019-09-06 00:15 | NUR ---
[place] 17309/05/19 NOT GIVEN WHEN PATIENT RECEIVED. WILL ADMINISTERED ORDER.
[2019-09-06] MEDS: NACL 0.45% 1,000 ML IV SCH ×4 (00:16→22:31)
--- NOTE | 2019-09-06 00:30 | NUR ---
SWAB PATIENT FOR CORONAVIRUS PER ORDER. PATIENT REFUSED STRAIGHT CATHETER. EDUCATED THE PURPOSE AND BENEFITS. STILL REFUSED X2. WILL TRY AGAIN LATER
[2019-09-06] MEDS: DEXTROSE 50% 50 ML SYR IVP PRN (01:03)
--- NOTE | 2019-09-06 01:25 | NUR ---
PATIENT IS AWAKE. CHECKED BLOOD SUGAR. PATIENT BLOOD SUGAR 48. ADMINISTERED D50. WILL CONTINUE TO MONITOR.
--- NOTE | 2019-09-06 01:31 | NUR ---
RECEIVED PATIENT FROM ER. HEPARIN INJECTION SCHEDULED AT 2100 AND BLOOD SUGAR WAS NOT GIVEN. ADMINISTERED PAST SCHEDULED HEPARIN INJECTION ORDER. WILL CONTINUE TO MONITOR.
--- NOTE | 2019-09-06 01:48 | NUR ---
RECHECKED PATIENT BLOOD SUGAR. PATIENT BLOOD SUGAR 163. WILL CONTINUE TO MONITOR.
[2019-09-06 02:19] VITALS: BP 125/68
[2019-09-06 02:58] LABS: ANION GAP 11.8 (8-16); CARBON DIOXIDE 27.8 mmol/L (21-32); CHLORIDE 128 mmol/L (98-107); CREATININE 2.5 mg/dL (0.6-1.3); GLUCOSE 149 mg/dL (74-106); POTASSIUM 4.6 mmol/L (3.5-5.1)
[2019-09-06 03:11] LABS: SODIUM SERUM 163 mmol/L (136-145)
[2019-09-06 03:12] LABS: UREA NITROGEN, BLOOD 81 mg/dL (7-18)
[2019-09-06 04:00] VITALS: BP 120/58
--- NOTE | 2019-09-06 04:30 | NUR ---
TRY TO STRAIGHT CATH ON PATIENT. CHICLE GRINDER FEEDER AT THE BEDSIDE. PATIENT KEEP REFUSING. EXPLAINED THE PURPOSE STILL REFUSED. WILL ENDORSED TO DAY SHIFT.
[2019-09-06] MEDS: BLOOD GLUCOSE MONITORING 1 DEV DEV FS SCH ×4 (06:25→21:48)
--- NOTE | 2019-09-06 06:30 | NUR ---
CHECKED PATIENT BLOOD SUGAR. PATIENT BLOOD SUGAR 80 WITHIN NORMAL LIMITS. WILL CONTINUE TO MONITOR.
--- NOTE | 2019-09-06 07:00 | NUR ---
RECEIVED REPORT FROM OIL RECOVERY UNIT OPERATOR NURSE REGARDING PATIENT CONDITION. STABILIZED AT THE MOMENT. NO SIGNS OR SYMPTOMS OF RESPIRATORY DISTRESS. NO HYPOXIA AT THIS TIME. IVF RUNNING 1/2 NS AT 40ML/HR. DROPLET AND FALL PRECAUTIONS FOLLOWED. ALL NEEDS MET, CALL LIGHT WITHIN REACH, WILL CONTINUE TO MONITOR.
--- NOTE | 2019-09-06 07:16 | NUR ---
ENDORSED PATIENT TO DAY SHIFT NURSE. PATIENT IN STABLE CONDITION.
[2019-09-06 08:00] VITALS: BP 118/88
[2019-09-06] MEDS: ALUMINUM HYD/MAG/SIMETHICONE 30 ML UDC PO SCH (08:38)
[2019-09-06] MEDS: glipiZIDE 5 MG TAB PO SCH ×2 (08:38→21:48)
[2019-09-06] MEDS: MAGNESIUM HYDROXIDE 2400 MG/30 ML UDC PO PRN (08:38)
--- NOTE | 2019-09-06 08:38 | NUR ---
MEDICATIONS EXPLAINED AND GIVEN TO PATIENT. TOLERATED WELL, ALL NEEDS MET, CALL LIGHT WITHIN REACH. DENIES PAIN AT THIS TIME. WILL CONTINUE WITH PLAN OF CARE.
[2019-09-06] MEDS: CHOLECALCIFEROL 1,000 IU TAB PO SCH (08:39)
[2019-09-06] MEDS: FERROUS SULFATE 325 MG TABEC PO SCH ×2 (08:39→21:48)
[2019-09-06] MEDS: LOSARTAN 50 MG TAB PO SCH ×2 (08:40→21:48)
--- NOTE | 2019-09-06 08:59 | NUR ---
GIVEN HEPARIN SUBQ IN THE RIGHT UPPER ARM. PLATELET IS 147. PATIENT TOLERATED WELL. SHE IS CURRENTLY EATING BREAKFAST AT THIS TIME. NO SIGNS OF DISTRESS NOTED. SAFETY MEASURES IN PLACE
[2019-09-06] MEDS ORDERED: SODIUM PHOSPHATE 118 ML ENEM RC PRN (09:00)
--- NOTE | 2019-09-06 09:24 | NUR ---
PATIENT HAS BEEN SCREENED AND CATEGORIZED HIGH NUTRITION RISK. PATIENT WILL BE SEEN WITHIN 1-2 DAYS OF ADMISSION. 09/06/2019-09/07/[address]
--- NOTE | 2019-09-06 09:48 | NUR ---
CALLED PHARMACY FOR THE TWO EYEDROPS SCHEDULED. ALBERT STATED SHE WILL BRING THEM.
--- NOTE | 2019-09-06 09:49 | NUR ---
CHANGED IVF 1/2 NS RATE TO 120 ML/HR
[2019-09-06] MEDS: LATANOPROST 0.005% OP 2.5 ML BTL OP SCH (10:40)
[2019-09-06] MEDS: POLYVINYL ALCOHOL 1.4% OP 15 ML SOL OP SCH ×3 (10:40→17:05)
[2019-09-06 10:41] LABS: BASOPHILS % (AUTO) 0.4 % (0.0-2.0); EOSINOPHILS # (AUTO) 0.5 K/uL (0-0.4); EOSINOPHILS % (AUTO) 6.9 % (0.0-4.0); HEMATOCRIT 35.5 % (36-48); HEMOGLOBIN 11.2 g/dL (12.0-16.0); LYMPHOCYTES # (AUTO) 2.4 K/uL (2.5-16.5); LYMPHOCYTES % (AUTO) 32.9 % (20.5-51.1); MEAN CORPUSCULAR HEMOGLOBIN 32 pg (27-31); MEAN CORPUSCULAR HGB CONC 32 g/dL (33-37); MEAN CORPUSCULAR VOLUME 102.3 fL (80-94); MONOCYTES # (AUTO) 0.4 K/uL (0.8-1.0); MONOCYTES % (AUTO) 5.2 % (1.7-9.3); NEUTROPHILS % (AUTO) 54.6 % (42.2-75.2); PLATELET COUNT (AUTO) 137 K/uL (140-450); RED BLOOD CELL COUNT(AUTO) 3.47 MIL/uL (4.20-5.40); RED CELL DISTRIBUTION WIDTH 15.8 % (11.6-13.7); WHITE BLOOD COUNT (AUTO) 7.4 K/uL (4.8-10.8)
[2019-09-06 10:55] LABS: ANION GAP 13.5 (8-16); CARBON DIOXIDE 27.6 mmol/L (21-32); CHLORIDE 126 mmol/L (98-107); CREATININE 2.5 mg/dL (0.6-1.3); GLUCOSE 171 mg/dL (74-106); POTASSIUM 5.1 mmol/L (3.5-5.1)
[2019-09-06 11:10] LABS: SODIUM SERUM 162 mmol/L (136-145)
--- NOTE | 2019-09-06 11:10 | NUR ---
CRITICAL LAB: NA 162, BUN 72. DR. ALEXANDER DIAZ.
[2019-09-06 11:11] LABS: UREA NITROGEN, BLOOD 72 mg/dL (7-18)
--- NOTE | 2019-09-06 11:35 | NUR ---
FINGERSTICK FOR BLOOD SUGAR: 131. NO INSULIN COVERAGE NEEDED. PATIENT TOLERATED WELL
[2019-09-06 12:00] VITALS: BP 142/67
--- NOTE | 2019-09-06 12:00 | NUR ---
ROUNDED ON PT, IN NO S/S RESPIRATORY DISTRESS, NO COMPLAINTS OF PAIN. REPOSITIONED PATIENT COMFORTABLY. IVF RUNNING 1/2 NS AT 120 ML/HR. ALL NEEDS MET, CALL LIGHT WITHIN REACH.
--- NOTE | 2019-09-06 12:35 | NUR ---
OBTAINED URINALYSIS SPECIMEN, STRAIGHT CATHETER. 2 ATTEMPTS. PT TOLERATED WELL. CLEAR YELLOW URINE 30ML. SPECIMEN SENT TO LAB.
--- NOTE | 2019-09-06 12:41 | NUR ---
HUNG NEW IV BAG OF 1/2 NS AT 120 ML/HR. NO S/S INFILTRATION AT IV SITES. FLOWS SMOOTHLY. REPOSITIONED PATIENT COMFORTABLY. ALL NEEDS MET, CALL LIGHT WITHIN REACH.
--- NOTE | 2019-09-06 13:00 | NUR ---
ARTIFICIAL TEARS TO BOTH EYES ADMINISTERED.
--- NOTE | 2019-09-06 13:04 | NUR ---
TURNED AND REPOSITIONED PATIENT. APPLIED BARRIER CREAM TO SKIN TEARS IN SACRAL AREA. NO BM SO FAR. PATIENT TOLERATED WELL.
[2019-09-06 13:47] LABS: MAGNESIUM 2.9 mg/dL (1.8-2.4); PHOSPHORUS 3.4 mg/dL (2.5-4.9)
[2019-09-06 14:08] LABS: APPEARANCE,URINE CLEAR (CLEAR); BILIRUBIN,URINE NEGATIVE (NEGATIVE); BLOOD, URINE 2+ (NEGATIVE); COLOR,URINE YELLOW (YELLOW); LEUKOCYTE ESTERASE ,URINE 3+ (NEGATIVE); NITRITE, URINE POSITIVE (NEGATIVE); UGLUCOSE NEGATIVE (NEGATIVE)
[2019-09-06 15:00] LABS: WBC,URINE 60-80 /HPF (0-5)
--- NOTE | 2019-09-06 15:00 | NUR ---
09/06/2019 RD INITIAL ASSESSMENT COMPLETED PLEASE REFER TO NUTRITION ASSESSMENT UNDER CARE ACTIVITY FOR ESTIMATED NUTRITIONAL NEEDS. RD RECOMMENDATIONS: 1. CONTINUE CARDIAC DIET. 2. RECOMMEND ADDING GLUCERNA BID TO OPTIMIZE NUTRITION INTAKE. 3. WHEN PTS GLUCOSE LEVEL IS MORE STABLE, CONSIDER ADDING CCHO 60 GM DIET ONTO CURRENT DIET (PT WITH FLUCTUATING GLUCOSE OF 48-163). 4. RD WILL F/U 2-3 DAYS; HIGH RISK. ROSSY PEARSON, RD
[2019-09-06 15:01] LABS: RBC,URINE 11-20 (MOD) /HPF (0-5)
--- NOTE | 2019-09-06 15:26 | NUR ---
ROUNDED ON PATIENT. NO COMPLAINTS OF PAIN AT THIS TIME, NO S/S RESPIRATORY DISTRESS. FIXED PATIENT IV ALARM, ADDED VTBI. ALL NEEDS MET, CALL LIGHT WITHIN REACH. WILL CONTINUE TO MONITOR.
[2019-09-06 16:00] VITALS: BP 128/50
--- NOTE | 2019-09-06 17:06 | NUR ---
BLOOD SUGARS CHECKED, 112, NO INSULIN COVERAGE NEEDED. ARTIFICIAL TEARS GIVEN. ALL NEEDS MET, CALL LIGHT WITHIN REACH. WILL CONTINUE TO MONITOR.
--- NOTE | 2019-09-06 19:00 | NUR ---
GAVE REPORT TO SETTLEMENT PROCESSOR NURSE REGARDING PATIENT CONDITION AND PLAN OF CARE. PATIENT IN NO SIGNS AND SYMPTOMS OF RESPIRATORY DISTRESS OR PAIN AT THIS TIME. ALL NEEDS MET, CALL LIGHT WITHIN REACH. DROPLET AND FALL PRECAUTIONS FOLLOWED.
[2019-09-06] MEDS ORDERED: cefTRIAXone 2,000 MG VIAL ONE (19:09)
[2019-09-06] MEDS: cefTRIAXone 2,000 MG in DEXTROSE 5% 100 ML IV SCH (19:12)
--- NOTE | 2019-09-06 19:12 | NUR ---
JOSE DEAN VIA IVPB. GIVEN MEDICATION EDUCATION. PATIENT ASLEEP. OPEN EYES WHEN NAME IS CALLED.
--- NOTE | 2019-09-06 19:13 | NUR ---
RECD. RESTING IN BED, AWAKE, A/OX1. RESPIRATION EVEN AND UNLABORED. DID NOT RESPOND WHEN QUESTIONS ASKED, SEEMS NOT TO MIND NURSE. SAFETY MEASURES ENFORCED. BED IN THE LOWEST POSITION. BED ON ALARM. CALL LIGHT IN REACHED. REORIENTED TO HOSPITAL SETTING. NEGATIVE FOR COVID -19 TEST. NO APPEARANCE OF PAIN NOTED, FLACC -0.
[2019-09-06 20:00] VITALS: BP 137/53
--- NOTE | 2019-09-06 21:48 | NUR ---
DUE PO MEDICATIONS GIVEN, COOPERATIVE. NO S/S OF ASPIRATION NOTED.
[2019-09-06] MEDS: INSULIN LISPRO SLIDING SCALE 100 UNITS/ML VIAL SUBQ PRN (21:51)
--- NOTE | 2019-09-06 22:36 | NUR ---
INFORMED DR. HERNANDEZ, PRICING/SIGNAGE TEAM MEMBER CALLED, PATIENT IS GRAM POSITIVE COCCI.
[2019-09-07] VITALS: BP 126/72
--- NOTE | 2019-09-07 | NUR ---
SLEEPING COMFORTABLY IN BED.
--- NOTE | 2019-09-07 03:00 | NUR ---
COMFORTABLE IN BED, SLEEPING. NO DISTRESS NOTED.
[2019-09-07] MEDS: DEXTROSE 5% 1,000 ML IV SCH ×2 (03:20→12:12)
[2019-09-07 04:00] VITALS: BP 115/65
--- NOTE | 2019-09-07 04:45 | NUR ---
OBTAINED SECOND SPECIMEN FOR COVID TEST, SENT TO LAB.
--- NOTE | 2019-09-07 05:30 | NUR ---
REFUSED BLOOD DRAW FOR AM LABS REPORTED BY ROLL COVERER.
[2019-09-07] MEDS: BLOOD GLUCOSE MONITORING 1 DEV DEV FS SCH ×4 (06:09→20:34)
[2019-09-07] MEDS: INSULIN LISPRO SLIDING SCALE 100 UNITS/ML VIAL SUBQ PRN ×2 (06:10→16:17)
--- NOTE | 2019-09-07 06:38 | NUR ---
BS CHECKED - 151, WITH 2 UNITS REGULAR INSULIN COVERAGE GIVEN. RESTING COMFORTABLY IN BED, STILL CONFUSED BUT NO ATTEMPT TO GET OUT OF BED. WILL ENDORSE TO AM SHIFT NURSE FOR CONTINUITY OF CARE.
[2019-09-07] MEDS: NACL 0.45% 1,000 ML IV SCH (06:51)
--- NOTE | 2019-09-07 07:20 | NUR ---
CONDITION REMAIN STABLE. ENDORSED TO AM SHIFT NURSE FOR CONTINUITY OF CARE.
--- NOTE | 2019-09-07 07:20 | NUR ---
RECIEVED PT. FROM FOAM MOLDER NURSE, AKUA, FOR CONITNUITY OF CARE. PT. AWAKE AND IN BED, NOT COOPERATIVE. AAOX1. RESPIRATIONS EVEN AND UNLABORED, ON RA WITH SAO2 AT 96%. NO SIGNS OF DISTRESS NOTED. SAFETY MEASURES ENFORCED. BED IN THE LOWEST POSITION. BED ON ALARM. CALL LIGHT IN REACHED. REORIENTED TO HOSPITAL SETTING. POC DISCUSSED. WILL CONTINUE TO MONITOR.
[2019-09-07 08:00] VITALS: BP 160/73
[2019-09-07 08:06] LABS: BASOPHILS % (AUTO) 0.7 % (0.0-2.0); EOSINOPHILS # (AUTO) 0.4 K/uL (0-0.4); HEMATOCRIT 35.1 % (36-48); HEMOGLOBIN 10.9 g/dL (12.0-16.0); LYMPHOCYTES % (AUTO) 29.7 % (20.5-51.1); MEAN CORPUSCULAR HEMOGLOBIN 32 pg (27-31); MEAN CORPUSCULAR HGB CONC 31 g/dL (33-37); MEAN CORPUSCULAR VOLUME 102.5 fL (80-94); MONOCYTES # (AUTO) 0.3 K/uL (0.8-1.0); MONOCYTES % (AUTO) 4.4 % (1.7-9.3); NEUTROPHILS # (AUTO) 3.9 K/uL (1.8-7.7); NEUTROPHILS % (AUTO) 59.2 % (42.2-75.2); PLATELET COUNT (AUTO) 136 K/uL (140-450); RED BLOOD CELL COUNT(AUTO) 3.42 MIL/uL (4.20-5.40); RED CELL DISTRIBUTION WIDTH 15.4 % (11.6-13.7); WHITE BLOOD COUNT (AUTO) 6.7 K/uL (4.8-10.8)
[2019-09-07] MEDS: CHOLECALCIFEROL 1,000 IU TAB PO SCH (08:39)
[2019-09-07] MEDS: LOSARTAN 50 MG TAB PO SCH ×2 (08:40→20:09)
[2019-09-07] MEDS: FERROUS SULFATE 325 MG TABEC PO SCH ×2 (08:40→20:08)
[2019-09-07] MEDS: glipiZIDE 5 MG TAB PO SCH ×2 (08:40→20:09)
[2019-09-07] MEDS: ALUMINUM HYD/MAG/SIMETHICONE 30 ML UDC PO SCH (08:41)
[2019-09-07] MEDS: MAGNESIUM HYDROXIDE 2400 MG/30 ML UDC PO PRN (08:41)
[2019-09-07 09:05] LABS: ANION GAP 15.4 (8-16); CARBON DIOXIDE 24.7 mmol/L (21-32); CHLORIDE 121 mmol/L (98-107); CREATININE 2.1 mg/dL (0.6-1.3); GLUCOSE 139 mg/dL (74-106); POTASSIUM 5.1 mmol/L (3.5-5.1); SODIUM SERUM 156 mmol/L (136-145); UREA NITROGEN, BLOOD 55 mg/dL (7-18)
--- NOTE | 2019-09-07 09:05 | NUR ---
RECEIVED CALL FROM ORLIN LAZARO, ON CRITICAL LAB VALUE OF SODIUM 156. NOT REPORTED TO MD D/T SODIUM TRENDING DOWN. WILL CONTINUE TO MONITOR.
[2019-09-07] MEDS ORDERED: NACL 0.9% 500 ML IV SCH (09:10)
--- NOTE | 2019-09-07 09:13 | NUR ---
RECEIVED CALL FROM TEJAS, ORLIN, ON MRSA POSITIVE. REPORTED TO DR. MUNOZ AND WILL PLACE ORDERS. WILL CONTINUE TO MONITOR.
--- NOTE | 2019-09-07 09:30 | NUR ---
DR. MCCLOUD BY THE BEDSIDE. NEW ORDERS TO GIVE BOLUS AND D5W FOR DEHYDRATION. WILL FOLLOW THROUGH.
[2019-09-07 12:00] VITALS: BP 135/64
[2019-09-07] MEDS: POLYVINYL ALCOHOL 1.4% OP 15 ML SOL OP SCH ×3 (12:11→16:20)
[2019-09-07] MEDS: LATANOPROST 0.005% OP 2.5 ML BTL OP SCH (12:11)
--- NOTE | 2019-09-07 12:20 | NUR ---
AFTERNOON MEDICATIONS GIVEN. NO SIGNS OF DISTRESS NOTED. V/S TAKEN AND WNL, NO COMPLAINS OF PAIN. NO INSULIN COVERAGE NEEDED FOR BLOOD GLUCOSE OF 78. WILL CONTINUE TO MONITOR.
[2019-09-07] MEDS: MUPIROCIN CA NASAL 2% 1GM TUBE NS SCH (14:37)
[2019-09-07] MEDS: CHLORHEXADINE GLUC 2% CLOTH TP SCH (14:37)
[2019-09-07 14:46] LABS: ANION GAP 14.7 (8-16); CARBON DIOXIDE 23.3 mmol/L (21-32); CHLORIDE 122 mmol/L (98-107); CREATININE 2.1 mg/dL (0.6-1.3); GLUCOSE 133 mg/dL (74-106); SODIUM SERUM 155 mmol/L (136-145)
[2019-09-07 15:02] LABS: UREA NITROGEN, BLOOD 53 mg/dL (7-18)
[2019-09-07 16:00] VITALS: BP 108/59
[2019-09-07] MEDS: cefTRIAXone 2,000 MG in DEXTROSE 5% 100 ML IV SCH (17:31)
--- NOTE | 2019-09-07 19:30 | NUR ---
ENDORSED TO HEALTH AND WELLNESS MANAGER RN FOR CONTINUITY OF CARE.
[2019-09-07 20:00] VITALS: BP 134/69
--- NOTE | 2019-09-07 20:00 | NUR ---
RECEIVED REPORT FROM DAYSHIFT NURSE AT BEDSIDE. PT AWAKE AND ALERT IN BED. CONFUSED. ABLE TO SAY SOME SIMPLE SENTENCES, BUT MOSTLY CONFUSED AND INCOMPREHENSIBLE. ON ROOM AIR, SATURATIONS 95%, LUNG SOUNDS CLEAR. S1S2, SR ON MONITOR. ALL OTHER VITALS STABLE. LEFT WRIST 24G, FLUSHED AND PATENT, INFUSING D5 @ 75ML/HR. SKIN WARM AND DRY, SMALL PRESSURE INJURY TO SACRUM BUT HEALING. ABDOMEN SOFT AND NONTENDER, BOWEL SOUNDS ACTIVE. PT IS INCONTINENT. BED LOCKED AND IN LOWEST POSITION, SIDERAILS UP, ORIENTED TO TREATMENT PLAN. ON CONTACT PRECAUTIONS. WILL CONTINUE TO MONITOR.
--- NOTE | 2019-09-07 21:35 | NUR ---
PT ON CARDIAC DIET, UNABLE TO SWALLOW PO MEDS. CRUSHED AND MIXED WITH APPLESAUCE. PT UNABLE TO FOLLOW COMMANDS, MUST REINFORCE AND ORIENT TO MEDICATION INDICATIONS. PT GIVEN WITH SMALL BITES. ALL MEDS ADMINISTERED.
[2019-09-07 22:05] LABS: ANION GAP 14.9 (8-16); CARBON DIOXIDE 24.7 mmol/L (21-32); CHLORIDE 118 mmol/L (98-107); CREATININE 2.1 mg/dL (0.6-1.3); GLUCOSE 169 mg/dL (74-106); POTASSIUM 4.6 mmol/L (3.5-5.1); SODIUM SERUM 153 mmol/L (136-145); UREA NITROGEN, BLOOD 47 mg/dL (7-18)
--- NOTE | 2019-09-07 23:05 | NUR ---
TURNED AND POSITIONED PATIENT. SMALL SOFT BROWN BOWEL MOVEMENT NOTED. PROVIDED SKIN CARE AND CHANGED JORDAN PADS. PT TOLERATED WELL. SMALL PRESSURE INJURY TO SACRUM, HEALING, NO DRAINAGE. OFFLOADED PRESSURE AREAS. CALL LIGHT WITHIN REACH, SIDERAILS UP.
[2019-09-08] VITALS: BP 113/78
--- NOTE | 2019-09-08 00:11 | NUR ---
PT RESTING WELL. ALERT TO VOICE AND LIGHT TOUCH. ALL VITALS STABLE. NO DISTRESS NOTED. REPOSITIONED TO OFFLOAD PRESSURE AREAS, AND REPOSITIONED TO UNKINK IV LINE.
--- NOTE | 2019-09-08 02:10 | NUR ---
PICTURES TAKEN AT SACRAL WOUND, SMALL SKIN TEAR. CLEANED SKIN AND CHANGED DRESSING.
[2019-09-08 04:00] VITALS: BP 122/59
--- NOTE | 2019-09-08 04:20 | NUR ---
MORNING CARE COMPLETE, PATIENT HAD ANOTHER BOWEL MOVEMENT, SMALL, BROWN AND SEMISOFT. VOIDED CLEAR YELLOW URINE. PERINEAL SKIN CARE PROVIDED. CHANGED LINEN AND GOWN. TURNED AND REPOSITIONED. PT DENIES PAIN.
--- NOTE | 2019-09-08 06:10 | NUR ---
BLOOD SUGAR CHECKED, 124, NO COVERAGE NEEDED. PT AWAKE IN BED. NO COMPLAINTS AT THIS TIME. IV FLUIDS STILL INFUSING AT LEFT WRIST 24G. SAFETY MEASURES IN PLACE. WILL ENDORSE TO DAYSHIFT NURSE.
[2019-09-08] MEDS: BLOOD GLUCOSE MONITORING 1 DEV DEV FS SCH ×4 (06:23→21:16)
--- NOTE | 2019-09-08 07:20 | NUR ---
RECEIVED PT FROM NIGHT NURSE. PT IN STABLE CONDITION, RESTING IN BED, NO DISTRESS NOTED, RESPIRATIONS EVEN AND UNLABORED ON ROOM AIR. CONTACT PRECAUTIONS IN PLACE FOR MRSA NARES. SKIN NON-INTACT WITH SACRAL SKIN TEAR IN PLACE. IV SITE IN PLACE IN L WR 24G PATENT AND ASYMPTOMATIC INFUSING PER ORDER. INCONTINENT. SAFETY MEASURES IN PLACE, CALL LIGHT WITHIN REACH, BED IN LOW POSITION. WILL CONTINUE TO MONITOR.
[2019-09-08 07:33] LABS: BASOPHILS % (AUTO) 0.6 % (0.0-2.0); EOSINOPHILS # (AUTO) 0.3 K/uL (0-0.4); EOSINOPHILS % (AUTO) 6.4 % (0.0-4.0); HEMATOCRIT 33.4 % (36-48); HEMOGLOBIN 10.4 g/dL (12.0-16.0); LYMPHOCYTES # (AUTO) 2.4 K/uL (2.5-16.5); LYMPHOCYTES % (AUTO) 45.6 % (20.5-51.1); MEAN CORPUSCULAR HEMOGLOBIN 32 pg (27-31); MEAN CORPUSCULAR HGB CONC 31 g/dL (33-37); MEAN CORPUSCULAR VOLUME 102.3 fL (80-94); MONOCYTES # (AUTO) 0.5 K/uL (0.8-1.0); MONOCYTES % (AUTO) 8.8 % (1.7-9.3); NEUTROPHILS # (AUTO) 2.1 K/uL (1.8-7.7); NEUTROPHILS % (AUTO) 38.6 % (42.2-75.2); PLATELET COUNT (AUTO) 119 K/uL (140-450); RED BLOOD CELL COUNT(AUTO) 3.27 MIL/uL (4.20-5.40); RED CELL DISTRIBUTION WIDTH 15.5 % (11.6-13.7); WHITE BLOOD COUNT (AUTO) 5.4 K/uL (4.8-10.8)
[2019-09-08 07:53] LABS: ANION GAP 12.3 (8-16); CARBON DIOXIDE 24.5 mmol/L (21-32); CHLORIDE 116 mmol/L (98-107); CREATININE 1.9 mg/dL (0.6-1.3); GLUCOSE 168 mg/dL (74-106); POTASSIUM 4.8 mmol/L (3.5-5.1); SODIUM SERUM 148 mmol/L (136-145); UREA NITROGEN, BLOOD 42 mg/dL (7-18)
[2019-09-08 08:00] VITALS: BP 103/43
[2019-09-08 08:42] LABS: MAGNESIUM 2.6 mg/dL (1.8-2.4); PHOSPHORUS 2.6 mg/dL (2.5-4.9)
--- NOTE | 2019-09-08 08:48 | NUR ---
DC [age] YRS OLD FEMALE PATIENT WAS [place] [facility] [place] DX OF HYPERNATREMIA NA+ WAS 169 ON ADMISSION COVID PUI . PT HAS A HX OF DEMENTIA, CVA DM AND HTN. CXR SHOWED LOW LUNG VOLUMES WITH TORTUOUS AORTA. STARTED 1/2 NS IVF , CONTINUE HOME MEDS . COVID TEST NEGATIVE X2. TRUST ADMINISTRATOR CONSULTED. DC PLAN TO GO BACK [place] [facility] WHEN ST[place] . CM TO FOLLOW. Addendum: 09/09/19 at 0850 by Maria Teresa Brooks CM FAXED PATIENTS CLINICALS [place] [facility] WILL FOLLOW UP Addendum: 09/09/19 at 0948 by Maria Teresa Brooks PATIENT WILL BE D/C BACK [place] [facility]. FA[place] CL[place]ICALS, FOLLOWED UP WITH FLORY AT [facility], SHE PROVIDED ROOM NUMBER [address] LYN[address] FAXED CLINICALS TO [facility] CALLED [employer] AND LEFT A VOICEMAIL REGARDING AUTH FOR TRANSPORTATION. Addendum: 09/09/19 at 1033 by Maria Teresa Brooks CM RECEIVED AUTH FOR TRANSPORTATION FROM [employer] AUTH # [id number]. Addendum: 09/09/19 at 1052 by Maria Teresa Brooks CM SET UP TRANSPORTATION WITH [facility] PATIENT WILL BE PICKED UP AT 12:00 PM. NOTIFIED [place] [place] [facility] AND VICKIE ALVARENGA OF TRANSPORTATION TIME. Addendum: 06/30/20 at 1106 by Maria Teresa Brooks CM CALLED PATIENTS SAHRA ESCOBAR [phone] TO DISCUSS DISCHARGE BACK [place] [facility] AND DISCUSS RIGHTS OF MEDICARE.
--- NOTE | 2019-09-08 08:49 | NUR ---
MEDICATIONS ADMINISTERED PER ORDER. PT TOLERATED WELL. NO DISTRESS NOTED. ASSISTED BY HAIR SPECIALIST WITH FEEDING BREAKFAST, EXCELLENT PO INTAKE. SAFETY MEASURES IN PLACE. WILL CONTINUE TO MONITOR.
[2019-09-08] MEDS: POLYVINYL ALCOHOL 1.4% OP 15 ML SOL OP SCH ×3 (08:51→17:00)
[2019-09-08] MEDS: CHOLECALCIFEROL 1,000 IU TAB PO SCH (08:52)
[2019-09-08] MEDS: ALUMINUM HYD/MAG/SIMETHICONE 30 ML UDC PO SCH (08:52)
[2019-09-08] MEDS: glipiZIDE 5 MG TAB PO SCH ×2 (08:52→21:00)
[2019-09-08] MEDS: FERROUS SULFATE 325 MG TABEC PO SCH ×2 (08:52→21:06)
[2019-09-08] MEDS: LOSARTAN 50 MG TAB PO SCH ×2 (08:52→21:06)
[2019-09-08] MEDS ORDERED: CRUSHER, PILL MC ONE (08:55)
[2019-09-08] MEDS ORDERED: SODIUM PHOSPHATE 118 ML ENEM RC PRN (09:44)
[2019-09-08] MEDS ORDERED: MAGNESIUM HYDROXIDE 2400 MG/30 ML UDC PO PRN (09:44)
[2019-09-08] MEDS: LATANOPROST 0.005% OP 2.5 ML BTL OP SCH (09:50)
--- NOTE | 2019-09-08 11:09 | NUR ---
BLOOD SUGAR 213. PT CONTINUE TO REST IN BED. NO DISTRESS NOTED. WILL CONTINUE TO MONITOR.
[2019-09-08] MEDS: INSULIN LISPRO SLIDING SCALE 100 UNITS/ML VIAL SUBQ PRN ×2 (11:12→16:15)
--- NOTE | 2019-09-08 11:19 | NUR ---
WASH PLANT OPERATOR NOTE: Information Provided By FLORY HENDRICKSON Comments SW WAS UNABLE TO MEET PATIENT AT BEDSIDE DUE TO MEDICAL CONDITION. 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 [facility] - [phone] Pre-Admission Level Of Functioning Status Total Care Prior Resources/Services Used In Last 12 Months SNF Retirement [facility] Other DME: [employer] Home Support No Caregiver Issues Financial Issues No Known Financial Issue Factors/Needs SNF/NH Placement Explanation And Or Other Factors Affecting/Possible DC Needs PATIENT IS SENIOR LIVING AND ON A BED HOLD. Discharge Plan Comments TENTATIVE DISCHARGE PLAN IS FOR PATIENT TO RETURN TO [facility]. DC Plan Status Initiated
[2019-09-08 12:00] VITALS: BP 107/50
[2019-09-08] MEDS: DEXTROSE 5% 1,000 ML IV SCH ×2 (12:05→21:15)
--- NOTE | 2019-09-08 12:31 | NUR ---
SPOKE TO PTS SON WINSTON. HE REQUESTED FOR A PHONE CALL TO SPEAK TO PT BE ARRANGED IN AFTERNOON.
[2019-09-08] MEDS ORDERED: Z-GUARD PASTE TP SCH (13:00)
--- NOTE | 2019-09-08 13:01 | NUR ---
PT. ADMITTED WITH LOW COURTNEY SCALE AT RISK, PT. ADMITTED FROM SNF WITH PARTIAL THICKNESS SKIN LOSS 1X1CM SUPERFICIAL DEPTH ON TOP OF HEALING SCAR, CONTINUE TO FOLLOW PRESSURE ULCER PREVENTION INTERVENTIONS. -APPLY THIN LAYER OF Z-GUARD TO SACRALCOCCYX AND COVER WITH FOAM DRESSING QD AND PRN IF SOLING -TURN AND REPOSITION PATIENT Q 2H -ASSESS AND MONITOR SKIN CONDITION DURING POSITION CHANGE -OFFLOAD BILATERAL HEELS BY PLACING PILLOWS UNDER CALVES AT ALL TIMES, UNLESS OTHERWISE CONTRAINDICATED -PRESSURE REDISTRIBUTION BY PLACING PILLOWS AND OFFLOADING SACRALCOCCYX -KEEP SKIN CLEAN AND DRY AT ALL TIMES.
[2019-09-08] MEDS ORDERED: Z-GUARD PASTE TP PRN (13:05)
[2019-09-08] MEDS: CHLORHEXADINE GLUC 2% CLOTH TP SCH (14:00)
[2019-09-08] MEDS: MUPIROCIN CA NASAL 2% 1GM TUBE NS SCH (14:00)
--- NOTE | 2019-09-08 14:27 | NUR ---
CALLED PTS SON WINSTON AND ASSISTED IN PHONE CALL FOR THEM TO TALK. WILL CONTINUE TO MONITOR.
[2019-09-08 16:00] VITALS: BP 125/58
[2019-09-08 16:15] LABS: ANION GAP 13.6 (8-16); CARBON DIOXIDE 24.2 mmol/L (21-32); CHLORIDE 112 mmol/L (98-107); CREATININE 1.9 mg/dL (0.6-1.3); GLUCOSE 234 mg/dL (74-106); POTASSIUM 4.8 mmol/L (3.5-5.1); SODIUM SERUM 145 mmol/L (136-145); UREA NITROGEN, BLOOD 37 mg/dL (7-18)
--- NOTE | 2019-09-08 16:15 | NUR ---
BLOOD SUGAR 223, 4 UNITS HUMALOG INSULIN GIVEN. PT CLEANED AND REPOSITIONED. CHLORHEXIDINE WIPES AND BACTROBAN GIVEN. NO DISTRESS NOTED. SAFETY MEASURES IN PLACE. WILL CONTINUE TO MONITOR.
--- NOTE | 2019-09-08 16:35 | NUR ---
REPORT GIVEN TO TANG TRONCOSO FOR CONTINUITY OF CARE.
--- NOTE | 2019-09-08 17:00 | NUR ---
PT REFUSED EYE DROPS. 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 SHO BRENNAN WAS ABLE TO CONVINCE PT TO HAVE BATTERIES CHANGED. CALL LIGHT WITHIN REACH. NO S/S OF RESPIRATORY DISTRESS OR DISCOMFORT NOTED AT THIS TIME. WILL CONTINUE TO MONITOR.
--- NOTE | 2019-09-08 19:00 | NUR ---
PT SLEEPING IN BED. CALL LIGHT WITHIN REACH. NO S/S OF RESPIRATORY DISTRESS OR DISCOMFORT NOTED AT THIS TIME. WILL CONTINUE TO MONITOR.
--- NOTE | 2019-09-08 19:27 | NUR ---
REPORT GIVEN TO NIGHT NURSE FOR CONTINUITY OF CARE.
--- NOTE | 2019-09-08 19:30 | NUR ---
RECEIVED PT IN STABLE CONDITION. AWAKE ALERT ORIENTED TIMES 2. ON TELE MONITOR. NO RESPIRATORY DISTRESS NOTED ON RA. BEDREST WITH IV FLUIDS INFUSING WELL ON LEFT WRIST 24G. BED ON LOW POSITION, FREQUENT ROUNDS NEEDED, SIDE RAILS UP TIMES 2, CALL LIGHT WITHIN REACH. WILL CONTINUE TO MONITOR
[2019-09-08 20:00] VITALS: BP 119/71
--- NOTE | 2019-09-08 21:05 | NUR ---
IV ACCESS ON THE LT WRIST G#24 INFILTRATED. DISCONTINUED AND STARTED A NEW IV ON THE RT HAND G#22. CLEAR AND PATENT.
[2019-09-08] MEDS: DEXTROSE 50% 50 ML SYR IVP PRN (21:16)
--- NOTE | 2019-09-08 21:16 | NUR ---
BLOOD SUGAR WAS CHECKED RESULT ONLY 51. PT IS ASYMPTOMATIC. D50 IVP GIVEN PROTOCOL. WILL CONTINUE TO MONITOR.
--- NOTE | 2019-09-08 22:40 | NUR ---
BLOOD SUGAR RECHEKED RESULT 153 AFTER THTE D50. WILL CONTINUE TO MONITOR.
[2019-09-09] VITALS: BP 126/70
--- NOTE | 2019-09-09 00:30 | NUR ---
MADE ROUNDS. PT ASLEEP. NO S/S OF ANY DISCOMFORT NOTED.
--- NOTE | 2019-09-09 02:00 | NUR ---
PT SLEEPING. NO S/S OF ANY DISTRESS NOTED. WILL CONTINUE TO MONITOR.
[2019-09-09 04:43] VITALS: BP 125/84
--- NOTE | 2019-09-09 05:00 | NUR ---
PT INCONTINENT. HAD A SMALL BM. CLEANED AND KEPT DRY. SACRAL AREA DRESSING IN PLACED.
[2019-09-09] MEDS: BLOOD GLUCOSE MONITORING 1 DEV DEV FS SCH ×2 (07:05→12:15)
--- NOTE | 2019-09-09 07:05 | NUR ---
BLOOD SUGAR THIS AM 178. INSULIN COVERAGE GIVNE SUBQ. STILL WITH IVF INFUISNG WELL.
[2019-09-09] MEDS: INSULIN LISPRO SLIDING SCALE 100 UNITS/ML VIAL SUBQ PRN (07:06)
--- NOTE | 2019-09-09 07:20 | NUR ---
ENDORSED PT IN STABLE CONDITION TO AM NURSE.
--- NOTE | 2019-09-09 07:22 | NUR ---
RECEIVED BEDSIDE REPORT FROM CHEMISTS NURSE GREGORIO FOR CONTINUITY OF CARE. PT IS AWAKE AND RESTING ON BED, EYES TO VOICE. PT IS ALERT AND ORIENTED X1 TO NAME, DENIED PAIN, SOB AND DIZZINESS. RESPIRATION EVEN ON RA. NO SIGNS OF DISTRESS NOTED. IV ON R HAND 22G, CLEAN AND INTACT, INFUSING PER MD ORDER. PT IS INCONTINENT AND BEDREST. SKIN WARM TO TOUCH, HEART-SHAPED OPTIFOAM ON SACRAL, CLEAN AND DRY. SAFETY MEASURES IN PLACE. BED IN LOW POSITION, CALL LIGHT WITHIN REACH, AND BED ALARM ACTIVATED.
[2019-09-09 08:00] VITALS: BP 131/70
[2019-09-09 08:36] LABS: BASOPHILS # (AUTO) 0.1 K/uL (0.00-0.22); BASOPHILS % (AUTO) 0.9 % (0.0-2.0); EOSINOPHILS # (AUTO) 0.3 K/uL (0-0.4); EOSINOPHILS % (AUTO) 5.6 % (0.0-4.0); HEMATOCRIT 31.3 % (36-48); HEMOGLOBIN 10.1 g/dL (12.0-16.0); LYMPHOCYTES # (AUTO) 2.4 K/uL (2.5-16.5); LYMPHOCYTES % (AUTO) 43.3 % (20.5-51.1); MEAN CORPUSCULAR HEMOGLOBIN 32 pg (27-31); MEAN CORPUSCULAR HGB CONC 32 g/dL (33-37); MEAN CORPUSCULAR VOLUME 100.3 fL (80-94); MONOCYTES # (AUTO) 0.3 K/uL (0.8-1.0); NEUTROPHILS # (AUTO) 2.6 K/uL (1.8-7.7); NEUTROPHILS % (AUTO) 45.2 % (42.2-75.2); PLATELET COUNT (AUTO) 129 K/uL (140-450); RED BLOOD CELL COUNT(AUTO) 3.12 MIL/uL (4.20-5.40); RED CELL DISTRIBUTION WIDTH 14.8 % (11.6-13.7); WHITE BLOOD COUNT (AUTO) 5.6 K/uL (4.8-10.8)
[2019-09-09 08:52] LABS: MAGNESIUM 2.4 mg/dL (1.8-2.4); PHOSPHORUS 2.4 mg/dL (2.5-4.9)
[2019-09-09] MEDS ORDERED: ROC1PM IV (08:59)
[2019-09-09] MEDS ORDERED: NACL 0.45% 1,000 ML IV SCH (09:00)
[2019-09-09] MEDS ORDERED: CLOPIDOGREL 75 MG TAB PO SCH (09:00)
[2019-09-09 09:01] LABS: ANION GAP 12.8 (8-16); CARBON DIOXIDE 22.9 mmol/L (21-32); CHLORIDE 112 mmol/L (98-107); CREATININE 1.9 mg/dL (0.6-1.3); GLUCOSE 204 mg/dL (74-106); POTASSIUM 4.7 mmol/L (3.5-5.1); SODIUM SERUM 143 mmol/L (136-145); UREA NITROGEN, BLOOD 31 mg/dL (7-18)
[2019-09-09] MEDS: ALUMINUM HYD/MAG/SIMETHICONE 30 ML UDC PO SCH (09:14)
[2019-09-09] MEDS: glipiZIDE 5 MG TAB PO SCH (09:15)
[2019-09-09] MEDS: LOSARTAN 50 MG TAB PO SCH (09:15)
[2019-09-09] MEDS: FERROUS SULFATE 325 MG TABEC PO SCH (09:15)
[2019-09-09] MEDS: CHOLECALCIFEROL 1,000 IU TAB PO SCH (09:15)
[2019-09-09] MEDS: POLYVINYL ALCOHOL 1.4% OP 15 ML SOL OP SCH (09:16)
[2019-09-09] MEDS: LATANOPROST 0.005% OP 2.5 ML BTL OP SCH (09:20)
--- NOTE | 2019-09-09 09:22 | NUR ---
ADMINISTERED MEDS PER MD ORDER, MEDS EDUCATION PROVIDED, AND REINFORCEMENT NEEDED DUE TO MENTAL STATUS, CRUSHED MEDS AND MIXED WITH APPLE SAUCE, PT TOLERATED WELL. PT IS AWAKE AND RESTING ON BED AT THIS TIME. NO SIGNS OF DISTRESS NOTED. SAFETY MEASURES IN PLACE. BED IN LOW POSITION AND CALL LIGHT WITHIN REACH. BED ALARM ACTIVATED.
--- NOTE | 2019-09-09 10:09 | NUR ---
FOUND PT PULLED OUT AND EDUCATED PT NOT TO REMOVE IV AND IT'S IMPORTANT TO MAINTAIN IV FOR TREATMENT AND EMERGENCY, REINFORCEMENT NEEDED. WILL RESTART IV SHORTLY.
--- NOTE | 2019-09-09 10:25 | NUR ---
STARTED A NEW IV ON RFA 24, CLEAN AND DATED, CONTINUE INFUSING PER MD ORDER. BELL HOLE DIGGER PROVIDED HYGIENE CARE AND PT IS RESTING ON BED COMFORTABLY AT THIS TIME. SAFETY MEASURES IN PLACE, BED IN LOW POSITION AND CALL LIGHT WITHIN REACH, BED ALARM ACTIVATED.
--- NOTE | 2019-09-09 11:05 | NUR ---
CUT OUT MACHINE OPERATOR TO NOTIFY JUANY AND NOTIFIED THAT PT WILL BE TRANSFER BACK TO [facility] THIS AFTERNOON AROUND 12 PM. JUANY WAS AWARE OF TRANSFER.
--- NOTE | 2019-09-09 11:08 | NUR ---
CALLED [facility] AND SPOKE WITH JEFFERY, PROVIDED FULL REPORT TO JEFFERY AND ANSWERED ALL HER QUESTIONS. JEFFERY WAS AWARE THAT PT IS GOING TO TRANSFER TO HER FACILITY AROUND 12 PM. PROVIDED A CALL BACK NUMBER FOR FURTHER QUESTION.
--- NOTE | 2019-09-09 11:50 | NUR ---
CHECKED BLOOD GLUCOSE AND RECEIVED 128, NO COVERAGE NEEDED. WITH ASSIST FROM QUALITY CONTROL OPERATOR, CHANGED PT INTO PINK AND WOUND PICTURE TAKEN. PT IS RESTING AND AWAITING FOR TRANSPORT TO [place] [facility]
[2019-09-09 12:00] VITALS: BP 120/69
--- NOTE | 2019-09-09 12:22 | NUR ---
DISCHARGE EDUCATION PROVIDED TO PATIENT AT BEDSIDE. EDUCATED PT ON FOLLOW WITH MD, MEDICATIONS REGIMENS, SIDE EFFECTS, DIET, AND DISEASE MANAGEMENT; REINFORCEMENT NEEDED DUE TO PT'S MENTAL STATUS. REMOVED ALL ARM BAND AND KEEP IV WITHIN FOR [place]IBIOTIC TREAT[place] [facility] PROVIDED DISCHARGE HARD COPIED TO TRANSPORTATION PERSONNEL. PT IS GOING TO TRANSFER AT THIS TIME [place] [facility] BY [facility]. PT IS IN STABLE CONDITION.
== END 2019-09-09 12:22 | DRG 682 ==
LOC: MED 13:46 → MTU 17:40 → EEVIPCON 17:40 → MTU 09-06 20:34
PROVIDERS: ADMIT General Practice; ATTEND General Practice
DX: N17.0 Acute kidney failure with tubular necrosis (principal); G93.41 Metabolic encephalopathy; E43 Unspecified severe protein-calorie malnutrition; E87.0 Hyperosmolality and hypernatremia; E86.0 Dehydration; Z68.25 Body mass index [BMI] 25.0-25.9, adult; G30.9 Alzheimer's disease, unspecified; E03.9 Hypothyroidism, unspecified; Z88.8 Allergy status to other drugs, medicaments and biological substances; E87.5 Hyperkalemia; Z86.73 Personal history of transient ischemic attack (TIA), and cerebral infarction without residual deficits; E87.8 Other disorders of electrolyte and fluid balance, not elsewhere classified; E83.41 Hypermagnesemia; D50.9 Iron deficiency anemia, unspecified; H40.9 Unspecified glaucoma; N18.3 Chronic kidney disease, stage 3 (moderate); I12.9 Hypertensive chronic kidney disease with stage 1 through stage 4 chronic kidney disease, or unspecified chronic kidney disease; E11.22 Type 2 diabetes mellitus with diabetic chronic kidney disease; N12 Tubulo-interstitial nephritis, not specified as acute or chronic; F01.50 Vascular dementia, unspecified severity, without behavioral disturbance, psychotic disturbance, mood disturbance, and anxiety; Z03.818 Encounter for observation for suspected exposure to other biological agents ruled out
CPT/HCPCS: 36415; 71045; 80048; 80053; 81001; 82140; 82607; 82728; 82746; 82948; 83036; 83605; 83615; 83735; 83880; 83935; 84100; 84134; 84443; 84484; 85025; 85379; 85610; 85651; 85730; 86140; 87040; 87081; 87086; 87186; 93005; 96372; 99291; C1758; J0696; J1644; J1815; J7030; J7060; Q0092; U0003-CS

== ENCOUNTER 2019-12-24 15:31 | Inpatient (IN) | payer OTHER, SELFPAY ==
[~2019-12-24] VITALS: Ht 162.6 cm; Wt 63.5 kg
[~2019-12-24 15:31] MED LIST changes: +ROC1PM IV
[2019-12-24 15:38] VITALS: BP 114/57
--- NOTE | 2019-12-24 15:40 | NUR ---
BIBA to bed 10
--- NOTE | 2019-12-24 15:49 | NUR ---
Rt forearm 20g IV inserted. pt tolerated well
--- NOTE | 2019-12-24 16:00 | NUR ---
Urinary straight catheterization performed via the sterile technique. emptied 200cc of urine. pt tolerated well.
--- NOTE | 2019-12-24 16:18 | NUR ---
blood cultures, labs, urine, anisha swab collected.
--- NOTE | 2019-12-24 16:19 | NUR ---
89 year old female biba from [facility] for c/o abnormal labs of NA-160. per [facility], pt is Altered mental status. baseline is a/o x 2, and now pt is a/o x 1 to name. upon arrival, pt unable to make conversations or speak in complete sentences. gcs 13. unable to follow commands. CBL sounds. respirations are even and unlabored. on room air. no other signs noted. awaiting MSE. connected to cardiac monitoring and bed placed in lowest position with rails x 2. pmhx: HTN, DM, dementia allx: NSAIDs
--- NOTE | 2019-12-24 16:24 | NUR ---
pt taken to CT via rabimael.
[2019-12-24 16:45] LABS: APPEARANCE,URINE CLOUDY (CLEAR); BILIRUBIN,URINE NEGATIVE (NEGATIVE); BLOOD, URINE NEGATIVE (NEGATIVE); COLOR,URINE YELLOW (YELLOW); LEUKOCYTE ESTERASE ,URINE NEGATIVE (NEGATIVE); NITRITE, URINE NEGATIVE (NEGATIVE); PH,URINE 5.5 (5.0-9.0); UGLUCOSE TRACE (NEGATIVE)
[2019-12-24 16:56] LABS: BASOPHILS % (AUTO) 0.5 % (0.0-2.0); EOSINOPHILS # (AUTO) 0.6 K/uL (0-0.4); EOSINOPHILS % (AUTO) 6.9 % (0.0-4.0); HEMATOCRIT 35.9 % (36-48); HEMOGLOBIN 11.3 g/dL (12.0-16.0); LYMPHOCYTES # (AUTO) 2.4 K/uL (2.5-16.5); LYMPHOCYTES % (AUTO) 27.7 % (20.5-51.1); MEAN CORPUSCULAR HEMOGLOBIN 32 pg (27-31); MEAN CORPUSCULAR HGB CONC 32 g/dL (33-37); MEAN CORPUSCULAR VOLUME 102.7 fL (80-94); MONOCYTES # (AUTO) 0.4 K/uL (0.8-1.0); MONOCYTES % (AUTO) 4.2 % (1.7-9.3); NEUTROPHILS # (AUTO) 5.2 K/uL (1.8-7.7); NEUTROPHILS % (AUTO) 60.7 % (42.2-75.2); PLATELET COUNT (AUTO) 147 K/uL (140-450); RED BLOOD CELL COUNT(AUTO) 3.49 MIL/uL (4.20-5.40); RED CELL DISTRIBUTION WIDTH 17.2 % (11.6-13.7); WHITE BLOOD COUNT (AUTO) 8.6 K/uL (4.8-10.8)
[2019-12-24 16:59] LABS: ALBUMIN 2.5 g/dL (3.4-5.0); ANION GAP 20.1 (8-16); ASPARTATE AMINOTRANSFERASE 102 U/L (15-37); CARBON DIOXIDE 16.9 mmol/L (21-32); CHLORIDE 133 mmol/L (98-107); CREATININE 2.8 mg/dL (0.6-1.3); GLUCOSE 296 mg/dL (74-106); MAGNESIUM 2.5 mg/dL (1.8-2.4); TOTAL BILIRUBIN 0.1 mg/dL (0.0-1.0)
[2019-12-24 17:04] LABS: SODIUM SERUM 165 mmol/L (136-145)
[2019-12-24 17:05] LABS: UREA NITROGEN, BLOOD 75 mg/dL (7-18)
[2019-12-24] MEDS ORDERED: DEXTROSE 5% 1,000 ML IV ONE (17:05)
--- NOTE | 2019-12-24 18:30 | NUR ---
PT ARRIVED TO UNIT VIA GURNEY. RECEIVED REPORT FROM ER NURSE DIONICIO-VICKIE. PT AOX1-CONFUSED, ON ROOM AIR WITH LEFT FA #22G RUNNING D5% @75ML/HR. BEDBOUND- INCONTINENT WITH INTACT SKIN. UNABLE TO DISCUSS PLAN OF CARE. ORIENTED TO BEDROOM, CALL LIGHT AND BATHROOM- PT DID NOT REPLY BACK UNDERSTANDING. CALL LIGHT WITHIN REACH. NO S/S OF RESPIRATORY DISTRESS OR DISCOMFORT NOTED AT THIS TIME. WILL CONTINUE TO MONITOR.
--- NOTE | 2019-12-24 18:31 | NUR ---
pt admitted to the care of Dr. Vogel. admitted to med surg 110B. report given to deanna JOHNSTON.
[2019-12-24] MEDS ORDERED: HYDROcodone/APAP 7.5/325 MG 1 TAB PO PRN (18:50)
[2019-12-24] MEDS ORDERED: POTASSIUM CHLORIDE 10 MEQ TABER PO PRN (18:50)
[2019-12-24] MEDS ORDERED: ZOLPIDEM 5 MG TAB PO PRN (18:50)
[2019-12-24] MEDS ORDERED: DOCUSATE SODIUM 100 MG GELCAP PO PRN (18:50)
[2019-12-24] MEDS ORDERED: ONDANSETRON 4 MG/2 ML VIAL IM/IVP PRN (18:50)
[2019-12-24] MEDS ORDERED: ACETAMINOPHEN 325 MG TAB PO PRN (18:50)
[2019-12-24] MEDS ORDERED: guaiFENesin DM 200/20 MG-10 ML 10 ML UDC PO PRN (18:50)
--- NOTE | 2019-12-24 19:00 | NUR ---
ENDORSED PT CARE TO COUNTY ADMINISTRATOR NURSE CIRO FOR CONTINUITY OF CARE. PT IN STABLE CONDITIONS AT THIS TIME.
--- NOTE | 2019-12-24 19:20 | NUR ---
RECEIVED BEDSIDE REPORT FROM DAY RN. PT IS AAOX1 HX DEMENTIA. RESPIRATIONS ARE EQUAL AND UNLABORED ON ROOM AIR. LUNG SOUNDS ARE CLEAR. C/C ABNORMAL LABS DX HYPERNATREMIA. IV ON L FA 20G D5 INFUSING AT 70ML/H. HX DM, HTN, DEMENTIA, GERD, HYPOTHYROID. SKIN IS INTACT. POC DISCUSSED WITH PT. UNABLE TO COMPREHEND. ALL SAFETY MEASURES ARE IN PLACE. WILL CONTINUE TO MONITOR.
[2019-12-24 19:23] LABS: CHOL/HDL RATIO 2.3 (1-4.5); FREE T4 (FREE THYROXINE) 0.77 ng/dL (0.76-1.46); PHOSPHORUS 3.4 mg/dL (2.5-4.9); THYROID STIMULATING HORMONE 5.57 uIU/mL (0.34-3.74)
[2019-12-24 19:30] VITALS: BP 99/49
[2019-12-24 19:31] LABS: PROTHROMBIN TIME 9.8 secs (10.8-13.4)
[2019-12-24] MEDS ORDERED: DEXTROSE 50% 50 ML SYR IVP PRN (20:00)
[2019-12-24] MEDS: BLOOD GLUCOSE MONITORING 1 DEV DEV FS SCH (20:21)
[2019-12-24] MEDS ORDERED: CRUSHER, PILL MC ONE (20:23)
[2019-12-24] MEDS: INSULIN LISPRO SLIDING SCALE 100 UNITS/ML VIAL SUBQ PRN (20:26)
[2019-12-24] MEDS: OLANZapine 2.5 MG TAB PO SCH (20:29)
[2019-12-24] MEDS: glipiZIDE 5 MG TAB PO SCH (20:29)
[2019-12-24] MEDS: FERROUS SULFATE 325 MG TABEC PO SCH (20:29)
[2019-12-24] MEDS: NACL 0.45% 1,000 ML IV SCH (20:29)
--- NOTE | 2019-12-24 20:29 | NUR ---
VSS. BLOOD SUGAR 281 ADMINISTERED INSULIN PER SLIDING SCALE. TRUE MEDICATIONS GIVEN CRUSHED WITH APPLESAUCE. ALL NEEDS MET. CALL LIGHT IS WITHIN REACH. WILL CONTINUE TO MONITOR.
--- NOTE | 2019-12-24 22:02 | NUR ---
PT IS SLEEPING COMFORTABLY IN BED WITH EYES CLOSED. CHEST RISE AND FALL NOTED. SAFETY MEASURES ARE IN PLACE.
[2019-12-25] VITALS: BP 114/62
--- NOTE | 2019-12-25 | NUR ---
VITAL SIGNS ARE WITHIN NORMAL LIMITS. PT IS LAYING COMFORTABLY IN BED WITH NO S/S OF RESPIRATORY DISCOMFORT. SAFETY MEASURES ARE IN PLACE. WILL CONTINUE TO MONITOR.
--- NOTE | 2019-12-25 02:10 | NUR ---
PT LAYING COMFORTABLY IN BED WITH EYES CLOSED. NO S/S OF DISTRESS. CALL LIGHT IS WITHIN REACH.
--- NOTE | 2019-12-25 05:43 | NUR ---
PATIENT HAS BEEN SCREENED AND CATEGORIZED MODERATE NUTRITION RISK. PATIENT WILL BE SEEN WITHIN 3-5 DAYS OF ADMISSION. 12/27/19 12/29/[address]
[2019-12-25 06:56] LABS: ANION GAP 18.6 (8-16); CARBON DIOXIDE 15.7 mmol/L (21-32); CHLORIDE 132 mmol/L (98-107); CREATININE 2.4 mg/dL (0.6-1.3); GLUCOSE 170 mg/dL (74-106); POTASSIUM 4.3 mmol/L (3.5-5.1)
--- NOTE | 2019-12-25 07:20 | NUR ---
RECEIVED REPORT FROM KAIWHAKAHAERE RN FOR CONTINUITY OF CARE. PT IS STABLE LAYING IN BED, IN NO DISTRESS. RECEIVING IV FLUIDS. SAFETY MEASURES IN PLACE. WILL CONTINUE WITH POC
[2019-12-25] MEDS: BLOOD GLUCOSE MONITORING 1 DEV DEV FS SCH ×4 (07:30→21:01)
[2019-12-25 08:00] VITALS: BP 94/60
[2019-12-25 08:06] LABS: BASOPHILS # (AUTO) 0.1 K/uL (0.00-0.22); BASOPHILS % (AUTO) 0.6 % (0.0-2.0); EOSINOPHILS # (AUTO) 0.5 K/uL (0-0.4); EOSINOPHILS % (AUTO) 6.5 % (0.0-4.0); HEMATOCRIT 31.7 % (36-48); LYMPHOCYTES # (AUTO) 2.2 K/uL (2.5-16.5); LYMPHOCYTES % (AUTO) 25.8 % (20.5-51.1); MEAN CORPUSCULAR HEMOGLOBIN 33 pg (27-31); MEAN CORPUSCULAR HGB CONC 32 g/dL (33-37); MEAN CORPUSCULAR VOLUME 102.6 fL (80-94); MONOCYTES # (AUTO) 0.4 K/uL (0.8-1.0); MONOCYTES % (AUTO) 5.1 % (1.7-9.3); NEUTROPHILS # (AUTO) 5.2 K/uL (1.8-7.7); PLATELET COUNT (AUTO) 132 K/uL (140-450); RED BLOOD CELL COUNT(AUTO) 3.09 MIL/uL (4.20-5.40); RED CELL DISTRIBUTION WIDTH 16.2 % (11.6-13.7); WHITE BLOOD COUNT (AUTO) 8.4 K/uL (4.8-10.8)
[2019-12-25 08:12] LABS: SODIUM SERUM 162 mmol/L (136-145); UREA NITROGEN, BLOOD 69 mg/dL (7-18)
--- NOTE | 2019-12-25 08:55 | NUR ---
Pt is awake with eyes closed oriented x 1 to person. Pt has moments of mumbling however can state she is in no pain. Pt. tolerated her medication crushed with apple sauce. Pt difficult to feed as she closes her mouth . Dr. Vogel and medical students at bedside doing rounds. V/S: 97.4, 75, 18, 94/59, 100% RA. pain flacc-0. Received a phone call from her son Constantino Lewis, who wanted to know the status of his mom , update was provided however call was dropped. Safety measures in place. Will continue to monitor.
[2019-12-25] MEDS: INSULIN LANTUS 100 UNITS/ML 10 ML VIAL SUBQ SCH (09:00)
[2019-12-25] MEDS ORDERED: INSULIN GLARGINE HUM REC ANLOG U SUBQ SCH (09:00)
[2019-12-25] MEDS: ALUMINUM HYD/MAG/SIMETHICONE 30 ML UDC PO SCH (09:00)
[2019-12-25] MEDS: FERROUS SULFATE 325 MG TABEC PO SCH ×2 (09:00→21:03)
[2019-12-25] MEDS ORDERED: CLOPIDOGREL 75 MG TAB PO SCH (09:00)
[2019-12-25] MEDS: glipiZIDE 5 MG TAB PO SCH ×2 (09:01→21:03)
[2019-12-25] MEDS: LATANOPROST 0.005% OP 2.5 ML BTL OP SCH (09:01)
[2019-12-25] MEDS: PANTOPRAZOLE 40 MG TABEC PO SCH (09:01)
--- NOTE | 2019-12-25 10:21 | NUR ---
SOCIAL WORK NOTE: Patient's Orientation Unable To Assess Information Provided By KYLEE ESCOBAR - SON Comments SW WAS UNABLE TO MEET PATIENT AT BEDSIDE. SW CONTACTED PATIENT'S SON, KYLEE ESCOBAR TO COMPLETE ASSESSMENT. Aircraft Machinist, Realtionship and Phone Number KYLEE ESCOBAR SON/HEALTHCARE DECISION MAKER [phone] Healthcare Power of Intensive Care Unit Registered Nurse No Does Patient Have a POLST No Identifying Problems No Social Work Triggers Is A Social Work Consult Needed No Mandate Report Filed No Explanation Of Identifying Problems PATIENT IS AN 89-YEAR-OLD FEMALE DMITTED FOR HYPERNATREMIA. PATIENT HAS PMHX OF DIABETES, DEMENTIA, HYPERTENSION, AND HYPOTHYROIDISM. [facility] - [phone] Pre-Admission Level Of Functioning Status Total Care Level Of Functioning Comment PER SON, PATIENT REQUIRES TOTAL ASSISTANCE WITH ADLS. Prior Resources/Services Used In Last 12 Months SNF [facility] Prior Resources/Service Comments PATIENT IS FDC AND ON A BED HOLD. Dialysis Comments PATIENT'S SON REPORTED THAT PATIENT DOES NOT RECEIVE DIALYSIS. Patient Had Caregiver No Home Support No Caregiver Issues Financial Issues No Known Financial Issue Referral To The Financial Counselor Needed No Factors/Needs SNF/NH Placement Explanation And Or Other Factors Affecting/Possible DC Needs PATIENT'S SON SAID THAT HE PREFERS PATIENT TO RETURN [place] [facility]. Pt/Rep Participated In Discharge Plan Yes Patient/Family Agress With Discharge Plan Yes Discharge Plan Comments TENTATIVE DISCHARGE PLAN IS FOR PATIENT TO RETURN HOME. DC Plan Status Initiated
--- NOTE | 2019-12-25 10:25 | NUR ---
In bed right now working with PT in no distress. All needs met.
--- NOTE | 2019-12-25 12:30 | NUR ---
Pt. eating lunch with assistance. BS was 199 received 2 units of Humalog coverage. V/S: 97.2, 78, 18, 141/50, 94% RA. Denies pain 0/10. In good spirits.
[2019-12-25] MEDS: INSULIN LISPRO SLIDING SCALE 100 UNITS/ML VIAL SUBQ PRN (12:42)
--- NOTE | 2019-12-25 13:56 | NUR ---
DISCHARGE PLANNING: THIS IS AN 89 Y/O FEMALE PATIENT [place] [facility] DUE TO HYPERNATREMIA. PAST MEDICAL HISTORY INCLUDE CKD STAGE 3, DM, HTN, CVA, DEMENTIA AND GLAUCOMA. INITIAL DIAGNOSIS OF HYPERNATREMIA. CURRENT LABS INCLUDE WBC 8.4, H/H 10.0/31.7, NA/K 162/4.3, BUN/CREA 69/2.4. COVID RACHEL - NEGATIVE. BLOOD CS PENDING. ON ROOM AIR SAT 98%. NEPHRO CONSULT IN PLACE AND SEEN - RECOMMENDED CONT 1/2 NS AT CURRENT RATE, WILL CONSIDER SWITCH TO D5W ONCE VOLUME REPLETED IF SODIUM REMAINS HIGH. RPT BMP IN AM. ON PLAVIX. DC PLAN BACK [place] [facility] [place]CE STABLE. Addendum: 12/27/19 at 1554 by Sonal Rubio CM PER DR. BHAGAT, TENTATIVE DC PLAN IS FOR TOMORROW. CL[facility]ALS [place] [facility]. PER CHINEDU MOFFETT AT [facility] TO CALL THEM ONCE DC ORDER IS UP. MARTHA OF [facility] MADE AWARE FOR TRANSPORT AUTH. AWAITING FOR RESPONSE. Addendum: 12/27/19 at 1558 by Sonal Rubio CM CONTACTED PATIENT'S SON MYRA ESCOBAR AT [phone] TO DISCUSS DC PLAN FOR TOMORROW TO GO BACK [place] [facility] AND IS IN AGREEMENT. IMM LETTER DISCUSSED WELL, NO CONCERNS OR QUESTIONS AT THIS TIME.
--- NOTE | 2019-12-25 14:20 | NUR ---
PT LAYING IN BED IN NO DISTRESS. ALL NEEDS MET.
[2019-12-25 15:07] LABS: ANION GAP 19.1 (8-16); CARBON DIOXIDE 15.3 mmol/L (21-32); CHLORIDE 131 mmol/L (98-107); CREATININE 2.6 mg/dL (0.6-1.3); GLUCOSE 223 mg/dL (74-106); POTASSIUM 4.4 mmol/L (3.5-5.1)
[2019-12-25 15:12] LABS: SODIUM SERUM 161 mmol/L (136-145); UREA NITROGEN, BLOOD 67 mg/dL (7-18)
[2019-12-25 16:00] VITALS: BP 89/60
--- NOTE | 2019-12-25 16:00 | NUR ---
PROVISION OF CARE PROVIDED. PT WAS TURNED IN NO DISTRESS. V/S: 96.7, 79, 16, 89/60, 100% RA, PAIN 0/10. ALL NEEDS MET.
[2019-12-25] MEDS: NACL 0.45% 1,000 ML IV SCH (17:28)
--- NOTE | 2019-12-25 18:40 | NUR ---
PT OBSERVED TO BE POCKETING FOOD. SPOKE WITH DR. LOZANO AND ORDERED CCHO REPLACEMENT TRAY HERE. IN NO DISTRESS. ALL NEEDS MET.
--- NOTE | 2019-12-25 19:23 | NUR ---
RECEIVED REPORT FROM MARCELLO RNERICA. PT AOX1 ON ROOM AIR. NO S/S RESPIRATORY DISTRESS. IV SITE LFA 20G, PATENT AND INTACT, INFUSING NS AT 60ML/HR. SAFETY MEASURES IN PLACE. CALL LIGHT WITHIN REACH. WILL CONTINUE TO MONITOR
--- NOTE | 2019-12-25 21:01 | NUR ---
PT BLOOD SUGAR 180. HELD INSULIN. PT REFUSING TO EAT. NO DISTRESS NOTED. WILL CONTINUE TO MONITOR
[2019-12-25] MEDS: OLANZapine 2.5 MG TAB PO SCH (21:03)
--- NOTE | 2019-12-25 21:05 | NUR ---
ADMINISTERED SCHEDULED MEDS PER MD. CRUSHED WITH APPLE SAUCE. PT TOLERATED WELL. NO DISTRESS NOTED. WILL CONTINUE TO MONITOR
--- NOTE | 2019-12-25 23:00 | NUR ---
CLEANED, CHANGED, REPOSITIONED PT, TOLERATED WELL. WILL CONTINUE TO MONITOR
[2019-12-26] VITALS: BP 144/72
--- NOTE | 2019-12-26 01:25 | NUR ---
PT ASLEEP IN BED. NO DISTRESS NOTED. WILL CONTINUE TO MONITOR
[2019-12-26] MEDS: NACL 0.45% 1,000 ML IV SCH ×2 (04:15→14:49)
--- NOTE | 2019-12-26 05:30 | NUR ---
IV ON LFA INFILTRATED, REMOVED WITH CANNULA INTACT. REINSERTED NEW IV ON RFA 20G, PATENT AND INTACT, PT TOLERATED WELL. WILL CONTINUE TO MONITOR
[2019-12-26 05:55] LABS: BASOPHILS # (AUTO) 0.1 K/uL (0.00-0.22); BASOPHILS % (AUTO) 0.9 % (0.0-2.0); EOSINOPHILS # (AUTO) 0.5 K/uL (0-0.4); EOSINOPHILS % (AUTO) 7.4 % (0.0-4.0); HEMATOCRIT 33.9 % (36-48); HEMOGLOBIN 10.8 g/dL (12.0-16.0); LYMPHOCYTES # (AUTO) 2.4 K/uL (2.5-16.5); LYMPHOCYTES % (AUTO) 33.9 % (20.5-51.1); MEAN CORPUSCULAR HEMOGLOBIN 33 pg (27-31); MEAN CORPUSCULAR HGB CONC 32 g/dL (33-37); MEAN CORPUSCULAR VOLUME 102.4 fL (80-94); MONOCYTES # (AUTO) 0.4 K/uL (0.8-1.0); MONOCYTES % (AUTO) 5.9 % (1.7-9.3); NEUTROPHILS # (AUTO) 3.7 K/uL (1.8-7.7); NEUTROPHILS % (AUTO) 51.9 % (42.2-75.2); PLATELET COUNT (AUTO) 127 K/uL (140-450); RED BLOOD CELL COUNT(AUTO) 3.31 MIL/uL (4.20-5.40); RED CELL DISTRIBUTION WIDTH 16.5 % (11.6-13.7); WHITE BLOOD COUNT (AUTO) 7.1 K/uL (4.8-10.8)
[2019-12-26 06:05] LABS: ANION GAP 19.2 (8-16); CARBON DIOXIDE 15.6 mmol/L (21-32); CHLORIDE 127 mmol/L (98-107); CREATININE 2.6 mg/dL (0.6-1.3); GLUCOSE 234 mg/dL (74-106); POTASSIUM 4.8 mmol/L (3.5-5.1)
[2019-12-26 06:07] LABS: T4 (THYROXINE) 5.6 ug/dL (4.5-12.0)
[2019-12-26 06:33] LABS: SODIUM SERUM 157 mmol/L (136-145); UREA NITROGEN, BLOOD 61 mg/dL (7-18)
[2019-12-26] MEDS: BLOOD GLUCOSE MONITORING 1 DEV DEV FS SCH ×4 (06:49→21:32)
[2019-12-26] MEDS: INSULIN LISPRO SLIDING SCALE 100 UNITS/ML VIAL SUBQ PRN ×3 (06:51→16:32)
--- NOTE | 2019-12-26 07:10 | NUR ---
ENDORSED PT TO DAY RN FOR CONTINUITY OF CARE. PT IS IN STABLE CONDITION
--- NOTE | 2019-12-26 07:10 | NUR ---
RECEIVED REPORT FROM PM RN, JOHANNA. PT CAME FROM [facility]. CC: ABNORMAL LABS. DX: HYPERNATREMIA. HX: GERD, HTN, DM, HYPERTHYROIDISM, DEMENTIA. ALLERGIES: NSAIDS, LISINOPRIL. PT IS DNR. IV: RT FA 20G 1/2 NS AT 60. DIET: [id number] PUREE, FEEDER REQUIRED. PT POCKETS FOOD. A&OX1. SKIN IS INTACT. RACHEL NEGATIVE. CONSULT WITH SPEECH THERAPY. CRUSH MEDS IN APPLE SAUCE. LAST BLOOD SUGAR: 194, 2UNITS GIVEN. PLAN: RECOVER AND RETURN BACK TO [facility].
[2019-12-26 08:00] VITALS: BP 135/66
[2019-12-26 08:07] LABS: FOLIC ACID 8.8 ng/mL (>3.0)
[2019-12-26] MEDS: FERROUS SULFATE 325 MG TABEC PO SCH ×2 (08:49→21:29)
[2019-12-26] MEDS: glipiZIDE 5 MG TAB PO SCH ×2 (08:49→21:28)
[2019-12-26] MEDS: PANTOPRAZOLE 40 MG TABEC PO SCH (08:53)
[2019-12-26] MEDS: ALUMINUM HYD/MAG/SIMETHICONE 30 ML UDC PO SCH (08:54)
[2019-12-26] MEDS: LATANOPROST 0.005% OP 2.5 ML BTL OP SCH (08:56)
--- NOTE | 2019-12-26 09:00 | NUR ---
PASSED MEDICATIONS CRUSHED AND MIXED IN APPLE SAUCE. PT TOLERATED WELL. NO S/S OF PAIN. GAVE EYE DROPS PRESCRIBED.
[2019-12-26] MEDS: INSULIN LANTUS 100 UNITS/ML 10 ML VIAL SUBQ SCH (09:06)
--- NOTE | 2019-12-26 09:50 | NUR ---
CRITICAL LAB VALUE: MRSA + OF NARES. CONTACT ORDERS PLACED. PHYSICIAN NOTIFIED. MEDS PLACED.
[2019-12-26] MEDS: CHLORHEXADINE GLUC 2% CLOTH TP SCH (10:30)
--- NOTE | 2019-12-26 11:06 | NUR ---
* Bedside Swallow Evaluation* Pt is 89 yo F BIBA from [facility] 12/24/2019 c hypernatremia. Pt last admitted to this hospital 08/2019 c similar abnormal lab value for hypernatremia. PMHx dementia, CKD stage 3, hypothyroidism, DM, HTN. CXR 12/23 - L basilar subsegmental ATX. CTH 12/23 (-) acute. Cleared with RN, Isabel, for BDSE. Per [employer] CONSULTANT, Linette, pt improving with PO intake and appears to benefit from present Puree/Thin Liquids consistency diet, eating ~85% of breakfast tray this AM. Per [employer] CONSULTANT, pt was initially given Regular/Thin Liquids consistency on admit but would consistently expel bolus. Pt seen bedside, eyes closed throughout entire session, occasionally verbalized wants/needs at simple phrase level in clear vocal quality. Pt occasionally sucked on L thumb and index finger in between PO trials. Per chart, pt received MS/Thin Liquids at [facility] prior to admit. ~1.5 oz of apple sauce, ~1oz of canned MS pears, ~1oz tomato juice, and ~1oz of thin apple juice given. Pt initially had minimal mouth opening to receive bolus but noted greater tsp stripping with subsequent trials. Pt had slow and prolonged rotary mastication of MS pears, faster manipulation and clearing of puree and liquids, no residue, slight delay swallow trigger, fair laryngeal excursion, no overt coughing nor throat clearing with PO's given. Diet recommendations and safe swallow strategies reviewed with pt and pt's RN. P: Rec continue Puree/Thin Liquids by tsp or cup 1 sip at a time, feed-assist Follow safe swallow strategies, oral care, aspiration precautions Nsg to monitor and notify GUIDANCE DIRECTOR of changes in status -Susnhine Paiz MA, CCC-GUIDANCE DIRECTOR Addendum: 12/26/19 at 1107 by [facility] Amended: Links added.
--- NOTE | 2019-12-26 11:30 | NUR ---
PT BLOOD SUGAR, 228. 4UNITS GIVEN.
[2019-12-26] MEDS: MUPIROCIN CA NASAL 2% 1GM TUBE NS SCH (12:59)
--- NOTE | 2019-12-26 13:00 | NUR ---
COMPLETED ROUND. PT IS RESTING IN BED. NO SIGNS OF DISTRESS. RESPIRATIONS ARE EVEN AND UNLABORED.
[2019-12-26 16:00] VITALS: BP 138/60
--- NOTE | 2019-12-26 16:00 | NUR ---
PTS BLOOD SUGAR: 236, 4UNITS GIVEN. HELPED TURN PT. PT VOIDED. NO BM REPORTED.
--- NOTE | 2019-12-26 19:31 | NUR ---
TRANSFER OF CARE TO PM RNJOY. PT IS RESTING IN BED. NO SIGNS OF DISTRESS. RESPIRATIONS ARE EVEN AND UNLABORED.
--- NOTE | 2019-12-26 19:32 | NUR ---
RECEIVED BEDSIDE ENDORSEMENT FROM AM SHIFT RN. PATIENT IS LYING IN BEC, NO SOB, ON ROOM AIR, RFA 20 G, INTACT, INFUSING IVF, PLAN OF CARE DISCUSSED, SAFETY MEASURES IN PLACE, FALL PROTOCOL IN PLACE, LOW BED IN PLACE, CALL LIGHT WITHIN REACH.
[2019-12-26] MEDS: OLANZapine 2.5 MG TAB PO SCH (21:28)
--- NOTE | 2019-12-26 21:43 | NUR ---
DUE MEDS GIVEN ORDERED, TOLERATED WELL.
[2019-12-27] VITALS: BP 149/56
--- NOTE | 2019-12-27 | NUR ---
ASLEEP, RESPIRATION EVEN AND UNLABORED.
--- NOTE | 2019-12-27 02:00 | NUR ---
REPOSITIONED, KEPT CLEAN AND DRY.
[2019-12-27 06:36] LABS: BASOPHILS # (AUTO) 0.1 K/uL (0.00-0.22); BASOPHILS % (AUTO) 0.8 % (0.0-2.0); EOSINOPHILS # (AUTO) 0.4 K/uL (0-0.4); EOSINOPHILS % (AUTO) 6.5 % (0.0-4.0); HEMATOCRIT 31.4 % (36-48); HEMOGLOBIN 10.1 g/dL (12.0-16.0); LYMPHOCYTES # (AUTO) 2.3 K/uL (2.5-16.5); LYMPHOCYTES % (AUTO) 35.1 % (20.5-51.1); MEAN CORPUSCULAR HEMOGLOBIN 33 pg (27-31); MEAN CORPUSCULAR HGB CONC 32 g/dL (33-37); MEAN CORPUSCULAR VOLUME 101.3 fL (80-94); MONOCYTES # (AUTO) 0.3 K/uL (0.8-1.0); MONOCYTES % (AUTO) 4.6 % (1.7-9.3); NEUTROPHILS # (AUTO) 3.4 K/uL (1.8-7.7); PLATELET COUNT (AUTO) 129 K/uL (140-450); WHITE BLOOD COUNT (AUTO) 6.5 K/uL (4.8-10.8)
[2019-12-27] MEDS: BLOOD GLUCOSE MONITORING 1 DEV DEV FS SCH ×4 (06:36→20:42)
--- NOTE | 2019-12-27 06:50 | NUR ---
BLOOD SUGAR CHECKED 75, NO INSULIN COV. GAVE APPLE JUICE AND ASSISTED PATIENT IN DRINKING. WILL MONITOR.
[2019-12-27 07:04] LABS: MAGNESIUM 2.2 mg/dL (1.8-2.4); PHOSPHORUS 2.7 mg/dL (2.5-4.9)
[2019-12-27 07:05] LABS: ANION GAP 16.2 (8-16); CHLORIDE 124 mmol/L (98-107); CREATININE 2.2 mg/dL (0.6-1.3); GLUCOSE 82 mg/dL (74-106); POTASSIUM 4.2 mmol/L (3.5-5.1); SODIUM SERUM 153 mmol/L (136-145); UREA NITROGEN, BLOOD 52 mg/dL (7-18)
--- NOTE | 2019-12-27 07:20 | NUR ---
RECEIVED BEDSIDE REPORT FROM RADIOLOGIC TECHNOLOGIST CHIEF VICKIE HAMILTON FOR CONTINUITY OF CARE. PATIENT RESTING IN BED, SLEEPING WITH VISIBLE CHEST RISE AND FALLS. SKIN INTACT, WARM AND DRY, RIGHT FOREARM BRUISE NOTED. IV SITE RIGHT FOREARM 20G INFUSING 1/2 NS @ 60 CC/HR. ABDOMINAL SOFT AND NON TENDER. INCONTINENT BLADDER AND BOWEL. TOTAL CARE. CONTACT ISOLATION NOTED FOR MRSA NARES. SAFETY MEASURES IN PLACE, WILL CONTINUE TO CLOSELY MONITOR. Addendum: 12/28/19 at 0810 by Damir Haddad RN SACRAL PRESSURE ULCER NOTED. SKIN NON INTACT
[2019-12-27] MEDS: NACL 0.45% 1,000 ML IV SCH (07:45)
--- NOTE | 2019-12-27 07:47 | NUR ---
PATIENT IN STABLE CONDITION, BEDSIDE ENDORSEMENT GIVEN TO AM SHIFT RN FOR CONTINUITY OF CARE.
[2019-12-27 08:00] VITALS: BP 157/66
[2019-12-27] MEDS: ALUMINUM HYD/MAG/SIMETHICONE 30 ML UDC PO SCH (09:55)
[2019-12-27] MEDS: glipiZIDE 5 MG TAB PO SCH ×2 (09:55→20:36)
[2019-12-27] MEDS: INSULIN LANTUS 100 UNITS/ML 10 ML VIAL SUBQ SCH (09:55)
[2019-12-27] MEDS: FERROUS SULFATE 325 MG TABEC PO SCH ×2 (09:55→20:35)
[2019-12-27] MEDS: LATANOPROST 0.005% OP 2.5 ML BTL OP SCH (09:55)
[2019-12-27] MEDS: PANTOPRAZOLE 40 MG TABEC PO SCH (09:55)
--- NOTE | 2019-12-27 09:56 | NUR ---
SCHEDULED MORNING MEDICATIONS GIVEN. CRUSHED AND FED WITH APPLESAUCE, PATIENT TOLERATED WELL. SAFETY MEASURES IN PLACE, CALL LIGHT WITHIN REACH. WILL CONTINUE TO MONITOR.
[2019-12-27] MEDS: CHLORHEXADINE GLUC 2% CLOTH TP SCH (10:27)
[2019-12-27] MEDS: MUPIROCIN CA NASAL 2% 1GM TUBE NS SCH (10:27)
--- NOTE | 2019-12-27 11:11 | NUR ---
MADE ROUNDS, PATIENT SLEEPING COMFORTABLY. NO ACUTE DISTRESS NOTED. SAFETY MEASURES IN PLACE, WILL CONTINUE TO MONITOR.
[2019-12-27 16:00] VITALS: BP 145/58
[2019-12-27] MEDS ORDERED: Z-GUARD PASTE TP ONE (16:21)
--- NOTE | 2019-12-27 16:35 | NUR ---
ASSISTED INFO ANALYST TO CHANGE THE PATIENT. WOUND CARE AT SACRAL AREA PERFORMED. CLEANSE WITH NS. PAT DRY, APPLIED Z GUARD AND COVERED WITH OPTIFORM DRESSING. PATIENT TOLERATED WELL.
[2019-12-27] MEDS: INSULIN LISPRO SLIDING SCALE 100 UNITS/ML VIAL SUBQ PRN (17:31)
--- NOTE | 2019-12-27 17:31 | NUR ---
2 UNITS OF HUMALOG ADMINISTERED FOR BLOOD GLUCOSE LEVEL 194. EDUCATION PROVIDED, PATIENT TOLERATED WELL. SAFETY MEASURES IN PLACE, WILL CONTINUE TO MONITOR.
--- NOTE | 2019-12-27 19:20 | NUR ---
ENDORSED STABLE PATIENT TO ASSOCIATE PROFESSOR OF SURGERY RN JOY FOR CONTINUITY OF CARE.
--- NOTE | 2019-12-27 19:24 | NUR ---
CALLED [facility] AND SCHEDULE WILL CALL W. AUTH FOR TRANSPORT [id number].
[2019-12-27] MEDS: OLANZapine 2.5 MG TAB PO SCH (20:35)
--- NOTE | 2019-12-27 20:52 | NUR ---
DUE MEDS GIVEN ORDERED, BLOOD SUGAR 174, NO INSULIN GIVEN BECAUSE THE PATIENT HAS POOR APPETITE.
[2019-12-28] VITALS: BP 149/67
[2019-12-28] MEDS: NACL 0.45% 1,000 ML IV SCH (01:00)
--- NOTE | 2019-12-28 01:02 | NUR ---
IVF FINISHED, HANGED A NEW BAG OF 1/2 NS 1L. IV SITE PATENT, PATIENT ASLEEP.
[2019-12-28] MEDS: Z-GUARD PASTE TP SCH ×2 (01:08→13:00)
--- NOTE | 2019-12-28 01:09 | NUR ---
PERINEAL CARE DONE, APPLIED Z GUARD TO SACRO COCCYX AREA, COVERED WITH OPTIFOAM DRESSING. REPOSITIONED, TOLERATED WELL.
--- NOTE | 2019-12-28 03:39 | NUR ---
PATIENT IS SLEEPING, NO DISTRESS, REPOSITIONED, KEPT WARM AND DRY, CALL LIGHT WITHIN REACH.
[2019-12-28 05:58] LABS: BASOPHILS % (AUTO) 0.4 % (0.0-2.0); EOSINOPHILS # (AUTO) 0.3 K/uL (0-0.4); EOSINOPHILS % (AUTO) 3.2 % (0.0-4.0); HEMATOCRIT 32.7 % (36-48); HEMOGLOBIN 10.5 g/dL (12.0-16.0); LYMPHOCYTES # (AUTO) 1.9 K/uL (2.5-16.5); LYMPHOCYTES % (AUTO) 23.2 % (20.5-51.1); MEAN CORPUSCULAR HEMOGLOBIN 32 pg (27-31); MEAN CORPUSCULAR HGB CONC 32 g/dL (33-37); MEAN CORPUSCULAR VOLUME 101.2 fL (80-94); MONOCYTES # (AUTO) 0.5 K/uL (0.8-1.0); MONOCYTES % (AUTO) 5.7 % (1.7-9.3); NEUTROPHILS # (AUTO) 5.5 K/uL (1.8-7.7); NEUTROPHILS % (AUTO) 67.5 % (42.2-75.2); PLATELET COUNT (AUTO) 105 K/uL (140-450); RED BLOOD CELL COUNT(AUTO) 3.23 MIL/uL (4.20-5.40); RED CELL DISTRIBUTION WIDTH 16.2 % (11.6-13.7); WHITE BLOOD COUNT (AUTO) 8.1 K/uL (4.8-10.8)
[2019-12-28 06:28] LABS: CARBON DIOXIDE 12.9 mmol/L (21-32); CHLORIDE 120 mmol/L (98-107); CREATININE 2.4 mg/dL (0.6-1.3); GLUCOSE 288 mg/dL (74-106); POTASSIUM 4.9 mmol/L (3.5-5.1); SODIUM SERUM 148 mmol/L (136-145); UREA NITROGEN, BLOOD 50 mg/dL (7-18)
[2019-12-28 06:34] LABS: MAGNESIUM 2.3 mg/dL (1.8-2.4); PHOSPHORUS 2.7 mg/dL (2.5-4.9)
[2019-12-28] MEDS: BLOOD GLUCOSE MONITORING 1 DEV DEV FS SCH ×2 (06:43→12:01)
[2019-12-28] MEDS: INSULIN LISPRO SLIDING SCALE 100 UNITS/ML VIAL SUBQ PRN (06:44)
--- NOTE | 2019-12-28 07:15 | NUR ---
PATIENT IS IN STABLE CONDITION. BEDSIDE ENDORSEMENT GIVEN TO AM SHIFT RN FOR CONTINUITY OF CARE.
--- NOTE | 2019-12-28 07:15 | NUR ---
RECEIVED BEDSIDE REPORT FROM SUPERVISING AIRPLANE PILOT RN JOY FOR CONTINUITY OF CARE. PATIENT RESTING IN BED, SLEEPING WITH VISIBLE CHEST RISE AND FALLS. SACRAL PRESSURE ULCER NOTED, DRESSING INTACT. SKIN WARM AND DRY, RIGHT FOREARM BRUISE NOTED. IV SITE RIGHT FOREARM 20G INFUSING 1/2 NS @ 60 CC/HR. ABDOMINAL SOFT AND NON TENDER. INCONTINENT BLADDER AND BOWEL. TOTAL CARE. CONTACT ISOLATION NOTED FOR POSITIVE MRSA NARES. SAFETY MEASURES IN PLACE, WILL CONTINUE TO CLOSELY MONITOR.
[2019-12-28 08:00] VITALS: BP 103/60
[2019-12-28] MEDS: LATANOPROST 0.005% OP 2.5 ML BTL OP SCH (08:59)
[2019-12-28] MEDS: FERROUS SULFATE 325 MG TABEC PO SCH (09:00)
[2019-12-28] MEDS: ALUMINUM HYD/MAG/SIMETHICONE 30 ML UDC PO SCH (09:00)
[2019-12-28] MEDS: PANTOPRAZOLE 40 MG TABEC PO SCH (09:00)
[2019-12-28] MEDS: glipiZIDE 5 MG TAB PO SCH (09:04)
[2019-12-28] MEDS: INSULIN LANTUS 100 UNITS/ML 10 ML VIAL SUBQ SCH (09:07)
--- NOTE | 2019-12-28 09:08 | NUR ---
SCHEDULED MORNING MEDICATION GIVEN. DR. OLAYINKA PRIDE TO HOLD HEPARIN FOR PLATELET LEVEL 105. SAFETY MEASURES IN PLACE, CALL LIGHT WITHIN REACH, SAFETY MEASURES IN PLACE, WILL CONTINUE TO MONITOR.
[2019-12-28] MEDS: MUPIROCIN CA NASAL 2% 1GM TUBE NS SCH (10:46)
[2019-12-28] MEDS: CHLORHEXADINE GLUC 2% CLOTH TP SCH (10:46)
[2019-12-28] MEDS ORDERED: CHLO118S2 TP (10:52)
[2019-12-28] MEDS ORDERED: DOCU-299 PO (10:52)
[2019-12-28] MEDS ORDERED: MUPI2CRE22 NS (10:52)
--- NOTE | 2019-12-28 11:02 | NUR ---
PATIENT RESTING IN BED COMFORTABLY, NOT IN ACUTE DISTRESS. SAFETY MEASURES IN PLACE, CALL LIGHT WITHIN REACH. SAFETY MEASURES IN PLACE, WILL CONTINUE TO MONITOR.
--- NOTE | 2019-12-28 12:01 | NUR ---
BLOOD GLUCOSE CHECKED 147, NO INSULIN COVERAGE NEEDED. SAFETY MEASURES IN PLACE. NO ACUTE DISTRESS NOTED. WILL CONTINUE TO MONITOR.
[2019-12-28] MEDS ORDERED: DRY DRESSING TP SCH (13:00)
--- NOTE | 2019-12-28 13:42 | NUR ---
ASSISTED QUARRYING SPECIALIST TO CHANGED THE PATIENT. WOUND CARE PERFORMED AND DRESSING CHANGED. IV REMOVED. DISCHARGE INSTRUCTION PROVIDED. DISCHARGE PROTOCOL FOLLOWED. INFORMED PATIENT'S SON MYRA [phone]. PATIENT IN STABLE CONDITION.
--- NOTE | 2019-12-28 14:03 | NUR ---
PATIENT WAS PICKED UP BY THE AMBULANCE AND GOING TO TRANSFER BACK TO [facility]. DISCHARGE PROTOCOL FOLLOWED. IN STABLE CONDITION.
--- NOTE | 2019-12-29 08:31 | NUR ---
WOUND CONSULT NOT DONE. CONSULT ORDER ON 12/27/2019 AND PT. DISCHARGED ON 12/28/2019
[2019-12-29] MEDS ORDERED: NACL 0.9% IRR 250 ML BOTTLE IR SCH (09:00)
== END 2019-12-28 14:25 | DRG 682 ==
LOC: MED 15:31 → MTU 17:25 → EEVIPCON 17:25 → MTU 12-26 10:07
PROVIDERS: ADMIT Family Medicine; ATTEND Family Medicine
DX: N17.0 Acute kidney failure with tubular necrosis (principal); E43 Unspecified severe protein-calorie malnutrition; G93.41 Metabolic encephalopathy; E72.20 Disorder of urea cycle metabolism, unspecified; E87.0 Hyperosmolality and hypernatremia; E86.0 Dehydration; Z68.24 Body mass index [BMI] 24.0-24.9, adult; Z20.828 Contact with and (suspected) exposure to other viral communicable diseases; F03.90 Unspecified dementia, unspecified severity, without behavioral disturbance, psychotic disturbance, mood disturbance, and anxiety; Z66 Do not resuscitate; N18.30 Chronic kidney disease, stage 3 unspecified; E11.22 Type 2 diabetes mellitus with diabetic chronic kidney disease; I12.9 Hypertensive chronic kidney disease with stage 1 through stage 4 chronic kidney disease, or unspecified chronic kidney disease; E87.8 Other disorders of electrolyte and fluid balance, not elsewhere classified; E83.41 Hypermagnesemia; E83.51 Hypocalcemia; D53.9 Nutritional anemia, unspecified; E02 Subclinical iodine-deficiency hypothyroidism; D63.1 Anemia in chronic kidney disease; E11.65 Type 2 diabetes mellitus with hyperglycemia; Z88.6 Allergy status to analgesic agent; Z88.8 Allergy status to other drugs, medicaments and biological substances; Z79.899 Other long term (current) drug therapy; Z86.73 Personal history of transient ischemic attack (TIA), and cerebral infarction without residual deficits
CPT/HCPCS: 36415; 70450; 71045; 80048; 80053; 81003; 82150; 82607; 82728; 82746; 82948; 83036; 83540; 83605; 83690; 83735; 83880; 84100; 84436; 84439; 84443; 84479; 84484; 85025; 85045; 85610; 85730; 87040; 87081; 92610; 93005; 96360; 97110; 97112; 97161-GP; 97530; 99291; J1644; J1815